=== PATIENT | female | born 1945 | race Caucasian/White ===

== ENCOUNTER 2017-08-03 12:23 | Observation (INO) | payer OTHER ==
[2017-08-03] MEDS ORDERED: ACETAMINOPHEN 325 MG TAB PO PRN (16:05)
[2017-08-03] MEDS ORDERED: ONDANSETRON DISINTEGRATING 4 MG TAB PO PRN (16:05)
[2017-08-03] MEDS ORDERED: ONDANSETRON 4 MG/2 ML VIAL IVP PRN (16:05)
[2017-08-03] MEDS ORDERED: WARFARIN SODIUM 4 MG TAB PO SCH (16:15)
--- NOTE | 2017-08-03 16:16 | PDCARPN ---
Cardiology Progress Note Chief Complaint: PAF Assessment/Plan: Assessment: Evangelina is a 72 y/o F with a history of CVA and atrial fibrillation on Coumadin. She is being treated with rhythm control and anticoagulation. She failed Sotalol and Tikosyn secondary to bradycardia. She has done well on Amiodarone but unfortunately she had two episodes of afib recently. On 08/01 she presented to [facility] in a.fib with RVR. She was started on PO dilt and d/c home. She was seen by Dr. Bedolla in the office today who was concerned that if she converted to NSR while on dilt she could become bradycardic with her history of SSS. Will d/c Dilt and plan for CV tomorrow morning. Her INR's have been therapeutic per her son who has kept a record (see below). She will continue Coumadin and Amiodarone. INR 06/28 2.5 07/06 2.6 07/13 2.3 07/20 2.4 07/27 2.4 Plan: Hold dilt and plan for CV tomorrow morning. 08/03/17 16:10 Subjective: Pt denies any CP, SOB, or palpitations. Objective: Vital Signs (8 Hrs) Temp Pulse Resp BP Pulse Ox 08/03/17 15:46 37.1 C 112 H 14 111/89 H 97 Intake/Output (24 Hrs) 08/02/17 08/03/17 08/04/17 05:59 05:59 05:59 Other: Weight 77.2 kg - Physical Exam Cardiovascular: no murmurs, no rubs, no gallops, irregularly irregular Respiratory: clear to auscultate bilat, no crackles, no wheezes Skin: no edema Neurologic: AAOx3 ICD10 Worksheet Patient Problems: Problems Problem Status Onset Atrial fibrillation Acute
[2017-08-03 16:40] LABS: INR 2.43 (0.83-1.16); PROTIME(PATIENT) 26.4 SEC (12.0-15.0)
[2017-08-03 16:41] LABS: APTT 35.5 SEC (23.0-38.0)
[2017-08-03 16:45] LABS: % IMMATURE GRANULYOCYTES 0.2 % (0.0-1.1); ABSOLUTE IMMATURE GRANULOCYTES 0.01 10^3/uL (0.00-0.10); ADD DIFF? NO; ADD MORPH? NO; ADD SCAN? NO; ATYPICAL LYMPHOCYTE FLAG 0 (0-99); FRAGMENT RBC FLAG 0 (0-99); HEMATOCRIT 35.4 % (38.0-47.0); HEMOGLOBIN 11.5 g/dL (12.6-16.3); LEFT SHIFT FLG 0 (0-99); LIPEMIA HEMOLYSIS FLAG 80 (0-99); MEAN CELL HEMOGLOBIN 26.6 pg (27.9-34.1); MEAN CELL HEMOGLOBIN CONCENTR. 32.5 g/dL (32.4-36.7); MEAN CELL VOLUME 81.9 fL (81.5-99.8); MEAN PLATELET VOLUME 9.9 fL (8.7-11.7); PLATELET CLUMPS FLAG 20 (0-99); PLATELET COUNT 263 10^3/uL (150-400); RED BLOOD CELL COUNT 4.32 10^6/uL (4.18-5.33)
[2017-08-03 17:06] LABS: ANION GAP 12 mEq/L (8-16); CALCIUM 8.7 mg/dL (8.5-10.4); CARBON DIOXIDE 25 mEq/l (22-31); CHLORIDE 105 mEq/L (97-110); CREATININE 0.8 mg/dL (0.6-1.0); GLOMERULAR FILTRATION RATE > 60; GLUCOSE 121 mg/dL (70-100); MAGNESIUM 2.1 mg/dL (1.6-2.3); POTASSIUM 4.1 mEq/L (3.5-5.2); SODIUM 142 mEq/L (134-144)
[2017-08-03] MEDS ORDERED: CLORAZEPATE 7.5 MG TAB PO PRN (17:45)
[2017-08-04] MEDS ORDERED: ATROPINE SULFATE 1 MG/10 ML SYR IVP ONE (06:00)
[2017-08-04] MEDS ORDERED: NS 1,000 ML IV ONE (06:00)
[2017-08-04 06:24] LABS: ANION GAP 9 mEq/L (8-16); CALCIUM 8.7 mg/dL (8.5-10.4); CARBON DIOXIDE 27 mEq/l (22-31); CHLORIDE 107 mEq/L (97-110); CREATININE 0.7 mg/dL (0.6-1.0); GLOMERULAR FILTRATION RATE > 60; GLUCOSE 93 mg/dL (70-100); POTASSIUM 4.3 mEq/L (3.5-5.2); SODIUM 143 mEq/L (134-144)
[2017-08-04 06:31] LABS: APTT 36.5 SEC (23.0-38.0); INR 2.58 (0.83-1.16); PROTIME(PATIENT) 27.6 SEC (12.0-15.0)
[2017-08-04 07:29] VITALS: TEMP 97.8
[2017-08-04] MEDS ORDERED: ATROPINE SULFATE 1 MG/10 ML SYR ONE (08:29)
--- NOTE | 2017-08-04 08:58 | PDANEPAE ---
ANE History of Present Illness 72 yo for isaiah/cv ANE Past Medical History - Cardiovascular History Hx Hypertension: Yes Hx Arrhythmias: Yes Hx Chest Pain: No Hx Palpitations: Yes - Pulmonary History Hx Oxygen in Use at Home: No Hx Sleep Apnea: Yes Sleep Apnea Screening Result - Last Documented: Positive - Endocrine History Hx Diabetes: No - Chronic Pain History Chronic Pain: Yes ANE Review of Systems Review of Systems: - Exercise capacity METS (RN): 3 METS ANE Patient History - Allergies Allergies/Adverse Reactions: No Known Allergies Allergy (Unverified 06/07/16 17:02) - Home Medications Home medications: home medication list seen and reviewed Home Medications: Atorvastatin Calcium [Lipitor 40 mg (*)] 40 mg PO DAILY 06/07/16 [Last Taken ] C/E/Zn/Cu/OM3/DHA/EPA/LUT/ZEAX [Preservision Areds 2 Softgel] 2 each PO DAILY [Last Taken 08/03/17] Ashley-3 Fatty Acids [Fish Oil 1000 mg (*)] 1,000 mg PO DAILY 06/07/16 [Last Taken 08/03/17] Tranxene 7.5mg 1 each PO DAILY PRN 06/07/16 [Last Taken 08/02/17] amLODIPine BESYLATE [Norvasc 5 mg (*)] 5 mg PO DAILY 06/07/16 [Last Taken ] Aspirin EC [Aspirin EC 81 mg (*)] 81 mg PO DAILY 08/03/17 [Last Taken 08/03/17] DILTIAZEM HCL [DILTIAZEM 24HR ER] 180 mg PO DAILY 08/03/17 [Last Taken 08/03/17] Herbals/Supplements -Info Only 1 ea PO DAILY 08/03/17 [Last Taken 08/03/17] Polyethylene Glycol 3350 [Miralax 17 gm (*)] 17 gm PO DAILY PRN 08/03/17 [Last Taken 08/03/17] Sertraline HCl [Zoloft 100mg (*)] 100 mg PO DAILY 08/03/17 [Last Taken 08/03/17] Warfarin Sodium [Coumadin 4MG (*)] 4 mg PO DAILY16 08/03/17 [Last Taken 08/02/17 ] - NPO status NPO Status: no food or drink >8 hours NPO Since - Liquids (Date): 08/04/17 NPO Since - Liquids (Time): 00:00 NPO Since - Solids (Date): 08/03/17 NPO Since - Solids (Time): 18:00 - Smoking Hx Smoking Status: Never smoked ANE Labs/Vital Signs - Labs Result Diagrams: 08/03/17 16:05 08/04/17 04:36 - Vital Signs Blood Pressure: 112/80 Heart Rate: 99 Respiratory Rate: 12 O2 Sat (%): 92 Height: 5 ft 6 in Weight: 77.2 kg ANE Physical Exam - Airway Neck exam: FROM Mallampati Score: Class 2 Mouth exam: normal dental/mouth exam - Pulmonary Pulmonary: no respiratory distress - Cardiovascular Cardiovascular: regular rate and rhythym - ASA Status ASA Status: II ANE Anesthesia Plan Anesthesia Plan: GA with mask
[2017-08-04] MEDS ORDERED: ASPIRIN EC 81 MG TAB PO SCH (09:00)
[2017-08-04] MEDS ORDERED: SERTRALINE HCL 100 MG TAB PO SCH (09:00)
[2017-08-04] MEDS ORDERED: ATORVASTATIN CALCIUM 40 MG TAB PO SCH (09:00)
[2017-08-04] MEDS ORDERED: amLODIPine BESYLATE 5 MG TAB PO SCH (09:00)
[2017-08-04] MEDS ORDERED: PROPOFOL 200 MG/20 ML VIAL ONE ×2 (09:02)
--- NOTE | 2017-08-04 09:49 | POSTANESTH ---
Post Anesthetic Evaluation Cardiovascular Status: Normal, Stable Respiratory Status: Normal, Stable Level of Consciousness/Mental Status: Can Participate in Eval Pain Control: Adequate, Prn Tx Ordered Nausea/Vomiting Control: Adequate, Prn Tx Ordered Complications Possibly Related to Anesthesia: None Noted
--- NOTE | 2017-08-04 09:49 | CPEKG ---
Heart Rate: 59 RR Interval: 1017 P-R Interval: 176 QRSD Interval: 90 QT Interval: 452 QTC Interval: 448 P [place]: 38 QRS [place]: -29 T Wave [place]: 13 EKG Severity - BORDERLINE ECG - EKG Impression: SINUS RHYTHM EKG Impression: BORDERLINE LEFT AXIS DEVIATION EKG Impression: BORDERLINE T WAVE ABNORMALITIES EKG Impression: COMPARED WITH 06/09/2017 NO SIG CHANGE Electronically Signed By: Neisha Gutierrez 04-Aug-2017 17:12:23
[2017-08-04 11:06] VITALS: BP 130/68; PULSE 58; RESP 16; O2SAT 95
--- NOTE | 2017-08-04 14:15 | GDS ---
[f rep st] DISCHARGE SUMMARY PRIMARY AXMINSTER RUG SETTER: Dr. Song Bedolla. DISCHARGE DIAGNOSIS: 1. Paroxysmal atrial fibrillation, currently on amiodarone, status post transesophageal echocardiogr am cardioversion on August 04, which was successful. 2. Possible sick sinus syndrome, currently maintaining sinus rhythm with heart rate of 50 to 60 beat s per minute. 3. Hypertension. 4. History of cerebrovascular accident. HOSPITAL COURSE: For detailed H and P, please see prior dictation. Briefly, the patient is a 72-yea r-old female with a history of hypertension, CVA, and paroxysmal atrial fibrillation. She is being t reated with rhythm control and anticoagulation. She failed sotalol and Tikosyn secondary to bradycar gallito. She has been on amiodarone and had done well until approximately a week ago. She had 1 event w here she converted to normal sinus rhythm on her own. Her 2nd event occurred 4 days ago and she was evaluated at [facility]. At that time, they started her on diltiazem for rate control and discharged her home. She followed up with Dr. Song Bedolla on August 03 and was still in atrial fibrillation. He was concerned that she would develop significant bradycardia if she converted to s inus rhythm on diltiazem. She was admitted to the hospital on August 03 and diltiazem was disconti nued. The following morning, she underwent a ROSE cardioversion by Dr. Sunny Jones, which was successf ul. Her heart rate has been stable at 50 to 60 beats per minute. The patient denies any chest disco mfort or shortness of breath. Her dizziness has improved. Her EKG post cardioversion reveals normal sinus rhythm with heart rate of 59 with diffuse T-wave flattening. She has been monitored on teleme try and has been remaining in sinus rhythm with a heart rate of 50 to 60 beats per minute. Her INR h as been therapeutic, it is currently 2.58. PHYSICAL EXAMINATION: GENERAL: Patient appears in no acute distress. VITAL SIGNS: Blood pressure 130/68, heart rate 58, oxygen saturation of 95% on room air, afebrile. LUNGS: Clear to auscultation . No wheezes, rhonchi, or crackles auscultated. CARDIAC: Regular rate and rhythm without any signi ficant murmurs, rubs, or gallops appreciated. EXTREMITIES: Palpable pulses without any evidence of edema. MEDICATIONS: Her medications are unchanged except for diltiazem has been discontinued. She will con tinue fish oil 1000 mg daily, Lipitor 40 mg daily, Norvasc 5 mg daily, 7.5 mg p.r.n., aspi rin 81 mg daily, herbal supplement daily, Zoloft 100 mg daily, Coumadin 4 mg daily, MiraLAX 17 g p.r. n., amiodarone 100 mg daily. PLAN: The patient is currently stable and ready for discharge home. She will remain on Coumadin and her INR is therapeutic. She will also continue amiodarone at 100 mg daily. Diltiazem has been disc ontinued. She will follow up with Dr. Song Bedolla as scheduled on 09/05 at 1:45 in [place]. /[id number]/MODL
--- NOTE | 2017-08-04 15:09 | ASDISCHSUM ---
Discharge Information Plan Status:Home with No Needs Medically Cleared to Leave:08/03/2017 Discharge Date:08/04/2017 01:14 PM CM D/C Disposition: ADT D/C Disposition:Home, Routine, Self-Care Projected Discharge Date:08/04/2017 12:00 AM Transportation at D/C: Discharge Delay Reason: Follow-Up Date:08/04/2017 12:00 AM Discharge Slot: Final Diagnosis: Placement Information Patient Contact Information Contact Name:KATTY Relationship: Address:[address] Work Phone: Emelia:RAMIN [facility] Phone: [facility]/Zip Code:[place] [address] Email: Financial Information Financial Class:Medicare Advantage Plans Primary Plan Desc:MARK [employer]UONG MEDICARE Primary Plan Number:[id number] Secondary Plan Desc:[facility] [employer] PROG Secondary Plan Number:[id number] Assessment Information Intervention Information
--- NOTE | 2017-08-04 15:12 | ECHO ---
[email or web address] [address] [address] Main: [phone] Fax: Transesophageal Echocardiography Name: VIRGINIA KWONG MR#: [id number] Study Date: 08/04/2017 Study Time: 09:05 AM Date of : 1945 Age: 72 year(s) Height: ( ) Weight: ( ) BSA: Gender: Female Examination: ROSE Indication: New onset A-fib, pre cardioversion Image Quality: Contrast: Requested by: Laila Wade Heart Rate: Rhythm: BP: / Procedure Staff Career Development Director: Landry Lancaster Reading Physician: Sunny Jones Requesting Provider: ROSE Exam Details Conclusions: Normal global systolic LV function. Normal size right ventricle. No thrombus is noted in the left atrium. Good color flow doppler in the left atrial appendage. No thrombus in left appendage. Measurements: Chambers Valvular Assessment AV/MV Valvular Assessment TV/PV Normal Normal Normal Name Value Range Name Value Range Name Value Range Additional Measurements: Findings: Left Ventricle: Normal global systolic LV function. Right Ventricle: Normal size right ventricle. Left Atrium: No thrombus is noted in the left atrium. Left Atrial Appendage: Good color flow doppler in the left atrial appendage. Normal PW-Doppler flow pattern. No thrombus in left appendage. Patient: VIRGINIA KWONG Study Date: 08/04/2017 Page 1 of 2 09:05 AM Right Atrium: The right atrium is normal in size. Mitral Valve: The mitral valve is normal in appearance and function. Aortic Valve: The aortic valve is normal in appearance and function. There is no significant aortic valve regurgitation. Tricuspid Valve: The tricuspid valve is normal in appearance and function. Pulmonic Valve: The pulmonic valve is normal in appearance and function. Exam Comments: Proceeded with successful elective DC cardioversion.. l1n (No Signature Object) Patient: VIRGINIA KWONG Study Date: 08/04/2017 Page 2 of 2 09:05 AM [id number]
--- NOTE | 2017-08-04 17:35 | GPN ---
[f rep st] PROCEDURE NOTE DATE OF PROCEDURE: 08/04/2017 Cardiology Procedure Note PROCEDURE PERFORMED: Transesophageal echocardiogram, cardioversion. INDICATIONS FOR PROCEDURE: Atrial fibrillation with rapid ventricular response. The patient is a pleasant 72-year-old female with known history of paroxysmal atrial fibrillation. S he was intolerant to AV param blocking medications, including diltiazem secondary to symptomatic jazzy ycardia. She is currently on low-dose amiodarone. She is on chronic anticoagulation with Coumadin. She has been compliant with Coumadin without interruption. Her INR today is therapeutic. She is sc heduled today for cardioversion in the setting of symptomatic AFib with RVR. DESCRIPTION OF PROCEDURE: After informed consents were obtained for anesthesia, ROSE, as well as card ioversion, the patient was brought to the cardiovascular unit. With the assistance of anesthesia, leona robles was sedated. Prior to sedation, she had an oral bite block in place. ROSE probe was passed without difficulty. ROSE probe was used to take images of all cardiac structures, the primary focus on her l eft atrium and left atrial appendage. There was no evidence of thrombus. Please see complete echo r eport for full details. ROSE probe was withdrawn without difficulty. She underwent a single synchronized biphasic shock of 15 0 joules restoring her to her normal sinus rhythm at approximately 58-62 beats per minute. She kirsten ated the procedure well. She awoke from anesthesia. She was without complaint. PLAN: 1. Patient be discharged home on amiodarone at her current dose. 2. Patient will continue Coumadin per her regular regimen. 3. Patient will schedule with Dr. Bedolla as an outpatient. /[id number]/MODL
== END 2017-08-04 13:14 | disposition home or self-care (01) ==
LOC: F2W 15:19
PROVIDERS: ADMIT Internal Medicine Cardiovascular Disease; ATTEND Internal Medicine Cardiovascular Disease
DX: I48.0 Paroxysmal atrial fibrillation (principal); R00.1 Bradycardia, unspecified; I10 Essential (primary) hypertension; E78.5 Hyperlipidemia, unspecified; E05.90 Thyrotoxicosis, unspecified without thyrotoxic crisis or storm; I69.320 Aphasia following cerebral infarction; J45.909 Unspecified asthma, uncomplicated; Z79.82 Long term (current) use of aspirin; Z79.01 Long term (current) use of anticoagulants; Z79.899 Other long term (current) drug therapy; Z86.718 Personal history of other venous thrombosis and embolism; Z87.891 Personal history of nicotine dependence; Z82.49 Family history of ischemic heart disease and other diseases of the circulatory system
CPT/HCPCS: 92960; 93005; 93312; G0378; J2704; J0461

== ENCOUNTER 2017-08-24 14:43 | Inpatient (IN) | payer OTHER ==
[2017-08-24] MEDS ORDERED: ACETAMINOPHEN 325 MG TAB PO PRN (15:49)
[2017-08-24] MEDS ORDERED: ONDANSETRON DISINTEGRATING 4 MG TAB PO PRN (15:49)
[2017-08-24] MEDS ORDERED: ONDANSETRON 4 MG/2 ML VIAL IVP PRN (15:49)
[2017-08-24] MEDS ORDERED: DILTIAZEM 125 MG in D5W 125 ML IV SCH (16:45)
--- NOTE | 2017-08-24 17:22 | GHP ---
[f rep st] HISTORY AND PHYSICAL DATE OF ADMISSION: 08/24/2017 CHIEF COMPLAINT: Atrial fibrillation with RVR. PRIMARY INVENTORY CONTROL ANALYST: Dr. 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 She underwent cardioversion 08/04/2017, here at [facility] and had been doing well up until a couple days ago. She then felt her heart pounding and palpitations. She felt very fatigued and not like herself. She had mild dizziness and lightheadedness. No chest pain or shortness of breath. No lower extremity edema. She is on low-dose amiodarone 100 mg daily because was not able to tolerate sotalol, beta-huong, or diltiazem due to bradycardia. So she was transferred here for further evaluation. At this current time, she denies any chest pain, shortness of breath, dizziness, or lightheadedness. REVIEW OF SYSTEMS: I completed a 10-point review of systems, negative except as noted in HPI. PAST MEDICAL HISTORY: Paroxysmal atrial fibrillation, colon polyps, CVA with residual difficulty word finding, diverticulosis, hyperlipidemia, hemorrhoids, hypertension, rheumatoid arthritis, history of a thyroid nodule, varicose veins , psoriasis, macular degeneration of left eye. She had an echocardiogram done at [place] showing a normal LV function, EF 55% to 60%, mild MR, LVH with diastolic dysfunction, mild TR. PAST SURGICAL HISTORY: Appendectomy, cholecystectomy, tonsillectomy/ adenoidectomy, tubal ligation, varicose vein surgery, thyroid nodule removal. FAMILY HISTORY: CHF, CVA, hypertension, [place] father, mom, and uncle. Lives in [place] with her son and . No alcohol, tobacco, or illicits. ALLERGIES: No known drug allergies. HOME MEDICATIONS: Norvasc 5 mg daily, Coumadin 4 mg daily, tranxene 7.5 mg daily, sertraline 100 mg daily, MiraLAX daily, [place]-3 herbal supplements, atorvastatin 40 mg daily, aspirin 81 mg daily, amiodarone 100 mg daily. PHYSICAL EXAMINATION: VITAL SIGNS: Temperature 37, blood pressure 103/73, heart rates 130s, respiration 14, 95% on room air. GENERAL: Lying in bed, no acute distress, pale. HEENT: PERRLA. EOMI. Oropharynx clear. CV: Irregularly irregular, tachycardia. No lower extremity edema. LUNGS: Clear bilaterally. ABDOMEN: Soft, nontender, nondistended. Positive bowel sounds. : No Rodríguez. MUSCULOSKELETAL: Arthritic changes of bilateral hands secondary to rheumatoid. SKIN: Psoriatic skin lesions over chest, back, and extremities. NEURO: 2-12 intact. PSYCH: Alert and oriented x3. LABS: Today at [place], sodium is 142, potassium 3.7, chloride 111, carbon dioxide 25, creatinine 0.7, glucose 113, calcium 8.5. WBC 5.7, hemoglobin 12, hematocrit 38, platelets 279. INR was 3.14. Chest x-ray today per their review was normal. UA 08/23 was negative. ASSESSMENT AND PLAN: 1. Atrial fibrillation with rapid ventricular response: The patient underwent cardioversion July 2017 and has been difficult to treat given intolerance to sotalol, beta-huong, and diltiazem. Cardiology will plan for pacemaker tomorrow and antiarrhythmic agents. We will start diltiazem drip here. Her INR is supratherapeutic. We will hold Coumadin tonight. 2. History of cerebrovascular accident: Continue statin and aspirin, has residual word-finding difficulties. No hemiparesis. She does not use a walker or cane at home. 3. Hypertension: Resume Norvasc. 4. Rheumatoid arthritis: Not on any medications. 5. Diet: Cardiac and n.p.o. after midnight. 6. Deep venous thrombosis prophylaxis: On Coumadin. DISPOSITION: Patient warrants inpatient admission given atrial fibrillation with RVR, warranting diltiazem drip and pacemaker placement. /[id number]/MODL MTDD
[2017-08-24] MEDS ORDERED: ZOLPIDEM TARTRATE 5 MG TAB PO PRN (18:27)
[2017-08-24] MEDS ORDERED: SODIUM CL NASAL 45 ML BTL EACHNARE PRN (18:27)
--- NOTE | 2017-08-24 19:46 | PDMN ---
Medical Necessity Medical necessity: Pt meets INPT criteria per MD and [facility] M-505 Atrial Fibrillation (afib with RVR warranting diltiazem drip and pending pacemaker placement; hx cardioversion and intolerance to antiarrhythmic agents).
[2017-08-25 04:46] LABS: INR 3.01 (0.83-1.16); PROTIME(PATIENT) 31.1 SEC (12.0-15.0)
[2017-08-25] MEDS ORDERED: SODIUM CL NASAL 45 ML BTL EACHNARE PRN (08:00)
[2017-08-25] MEDS ORDERED: CLORAZEPATE 7.5 MG TAB PO PRN (08:15)
[2017-08-25 08:40] LABS: INR 2.77 (0.83-1.16); PROTIME(PATIENT) 29.2 SEC (12.0-15.0)
[2017-08-25] MEDS ORDERED: ENOXAPARIN 40 MG/0.4 ML SYR SC SCH (09:00)
[2017-08-25] MEDS: PRESERVISION AREDS2 FORMULA EYE VIT 1 EACH PO SCH (09:04)
[2017-08-25] MEDS: SERTRALINE HCL 100 MG TAB PO SCH (09:04)
[2017-08-25] MEDS: OMEGA-3 FATTY ACIDS 1,000 MG CAP PO SCH (09:04)
[2017-08-25] MEDS: ATORVASTATIN CALCIUM 40 MG TAB PO SCH (09:04)
[2017-08-25] MEDS ORDERED: DILTIAZEM 125 MG in D5W 125 ML IV SCH (09:42)
--- NOTE | 2017-08-25 10:31 | PDCARPN ---
Cardiology Progress Note Chief Complaint: AF RVR Assessment/Plan: Assessment: 72F PMH CVA 2016, htn, previous DVT, CHAPITO/CPAP, found to have AF at time of CVA; transferred from [facility] for continuity of care as she follows with [facility]. Was admitted 08/22 and transferred 08/24 to [facility]. 30+ pages of records from [facility] reviewed. D/w Drs. Rothman and Graeme. #. AF RVR: pt follows with Dr. Bedolla in O/P setting plan for only rate control with Dilt at this time titrate Dilt to 10 mL/hr to achieve HR<110 #. CVA: life long Coumadin #. htn: hold home Amlodipine in setting of titrating Dilt BP normotensive 08/25/17 09:57 Subjective: Feels fatigued and some "queasiness in abdomen." No palps. Objective: Vital Signs (8 Hrs) Temp Pulse Resp BP Pulse Ox 08/25/17 08:30 98.3 F 128 H 18 113/79 95 08/25/17 04:00 97.6 F 113 H 18 91/68 L 93 Intake/Output (24 Hrs) 08/24/17 08/25/17 08/26/17 05:59 05:59 05:59 Intake Total 440 Balance 440 Intake: Oral (ml) 350 IV Infused (ml) 90 Diltiazem 125 mg In D5w 90 125 ml @ Per Protocol IV CONT MARY Rx#:[id number] Other: Weight 75.551 kg Number of Voids Toilet 3 Result Diagrams: 08/25/17 03:59 Telemetry: reviewed: AF RVR Echocardiogram: Echo (from [facility] report) EF 55-60, mild-mod LVH with DD, mild-mod biatrial dil, mild MR - Physical Exam Constitutional: no apparent distress Eyes: pale conjunctiva Ears, Nose, Mouth, Throat: moist mucous membranes Cardiovascular: irregularly irregular Respiratory: clear to auscultate bilat Gastrointestinal: normoactive bowel sounds, no tenderness Skin: no rashes, no edema Neurologic: AAOx3 Psychiatric: cooperative, interactive ICD10 Worksheet Patient Problems: Problems Problem Status Onset Atrial fibrillation Acute
--- NOTE | 2017-08-25 12:33 | ASMTCASEMG ---
Living Arrangements What is your living Answers: With Spouse arrangement? Who do you live with? Type Of Residence What kind of residence do Answers: House you live in? Discharge Plan Comments Coordination Status Comments Notes: Pt is a 72 y/o female admitted for RVR afib. Pt will most likely have a pacemaker placed today or tomorrow. OT has been ordered and awaiting recommendation. Pt will most likely d/c independent when medically stable. CM available for changes. Plan: Independent Date Signed: 08/25/2017 12:32 PM Electronically Signed By:ILENE Wilson
[2017-08-25] MEDS: POLYETHYLENE GLYCOL 3350 17 GM PKT PO PRN (13:50)
--- NOTE | 2017-08-25 14:55 | HOSPPROG ---
Hospitalist Progress Note Assessment/Plan: 72 yo F w rapid AF AF: failed cardioversion X 2 at [facility] on dilt gtt per cardiology, trial of po diltiazem anticoagulated CVA: residual weakness and aphasia statin and warfarin con: cpap proph: anticoagulated dispo: inpt Subjective: case d/w claudia tamez, cardiology PA. telemetry: rapid AF, rate trending down (interp by me) Objective: Vital Signs Temp Pulse Resp BP Pulse Ox 37.1 C 90 16 95/72 L 94 08/25/17 13:25 08/25/17 13:25 08/25/17 13:25 08/25/17 13:25 08/25/17 13:25 Laboratory Results 08/25/17 03:59 08/24/17 08/25/17 08/26/17 05:59 05:59 05:59 Intake Total 440 Balance 440 PT 29.2 SEC (12.0-15.0) H 08/25/17 08:25 INR 2.77 (0.83-1.16) H 08/25/17 08:25 - Physical Exam Constitutional: no apparent distress, appears nourished Eyes: PERRL, anicteric sclera Ears, Nose, Mouth, Throat: moist mucous membranes, hearing normal Cardiovascular: irregularly irregular Respiratory: no respiratory distress, no rales or rhonchi Gastrointestinal: normoactive bowel sounds, soft, non-tender abdomen Genitourinary: no bladder fullness, No gutierrez in urethra Skin: warm, normal color Musculoskeletal: full muscle strength Neurologic: other (R sided weakness and mild aphasia) ICD10 Worksheet Patient Problems: Problems Problem Status Onset Atrial fibrillation Acute
[2017-08-25] MEDS: DILTIAZEM 60 MG TAB PO SCH ×2 (15:54→22:11)
[2017-08-25] MEDS ORDERED: WARFARIN SODIUM 4 MG TAB PO SCH (16:00)
[2017-08-25] MEDS: ZOLPIDEM TARTRATE 5 MG TAB PO PRN (22:11)
[2017-08-26] MEDS: POLYETHYLENE GLYCOL 3350 17 GM PKT PO PRN (09:14)
[2017-08-26] MEDS: OMEGA-3 FATTY ACIDS 1,000 MG CAP PO SCH (09:15)
[2017-08-26] MEDS: PRESERVISION AREDS2 FORMULA EYE VIT 1 EACH PO SCH (09:15)
[2017-08-26] MEDS: ATORVASTATIN CALCIUM 40 MG TAB PO SCH (09:15)
[2017-08-26] MEDS: SERTRALINE HCL 100 MG TAB PO SCH (09:15)
[2017-08-26] MEDS: DILTIAZEM 60 MG TAB PO SCH ×3 (09:15→20:59)
[2017-08-26 12:08] LABS: INR 2.02 (0.83-1.16); PROTIME(PATIENT) 22.9 SEC (12.0-15.0)
[2017-08-26] MEDS ORDERED: ALTEPLASE 2 MG VIAL IVP PRN (13:06)
--- NOTE | 2017-08-26 13:28 | PDCARPN ---
Cardiology Progress Note Chief Complaint: AF RVR Assessment/Plan: Assessment: 72F PMH CVA 2016, htn, previous DVT, CHAPITO/CPAP, found to have AF at time of CVA; transferred from [facility] for continuity of care as she follows with [facility]. Was admitted 08/22 and transferred 08/24 to [facility]. #. AF RVR: pt follows with Dr. Bedolla in O/P setting plan for only rate control with Dilt adopted was on IV dilt and no on PO Dilt 120 TID/ will add Metoprolol likely pt will need pacer and more rhythm control will keep NPO and plan for Dr. Anand to see in AM #. CVA: life long Coumadin #. htn: hold home Amlodipine in setting of titrating Dilt BP normotensive Plan: -Add Metoprolol -NPO after midnight 08/26/17 13:24 Subjective: Has been ambulating. Pain from multiple IV sticks. Reviewed/Discussed With: hospitalist (Dr. Garcia) Objective: Vital Signs (8 Hrs) Temp Pulse Resp BP Pulse Ox 08/26/17 12:00 97.9 F 112 H 18 111/82 H 97 08/26/17 09:15 115 H 08/26/17 08:00 97.9 F 106 H 18 119/73 96 Intake/Output (24 Hrs) 08/25/17 08/26/17 08/27/17 05:59 05:59 05:59 Intake Total 440 750 Balance 440 750 Intake: Oral (ml) 350 750 IV Infused (ml) 90 Diltiazem 125 mg In D5w 90 125 ml @ Per Protocol IV CONT MARY Rx#:[id number] Other: Weight 75.551 kg Number of Voids Toilet 3 1 Number of Stools Toilet 1 Result Diagrams: 08/25/17 03:59 Telemetry: AF RVR - Physical Exam Constitutional: healthy appearing, no apparent distress Ears, Nose, Mouth, Throat: moist mucous membranes Cardiovascular: irregularly irregular Respiratory: clear to auscultate bilat Skin: no rashes, no abrasions Neurologic: AAOx3 Psychiatric: cooperative, interactive ICD10 Worksheet Patient Problems: Problems Problem Status Onset Atrial fibrillation Acute
[2017-08-26] MEDS: METOPROLOL TARTRATE 25 MG TAB PO SCH ×2 (14:12→20:57)
--- NOTE | 2017-08-26 16:22 | HOSPPROG ---
Hospitalist Progress Note Assessment/Plan: 72 yo F w rapid AF AF: failed cardioversion X 2 at [facility] on dilt gtt per cardiology, trial of po diltiazem anticoagulated check tsh CVA: residual weakness and aphasia statin and warfarin con: cpap proph: anticoagulated dispo: inpt Subjective: requesting multivitamin. case d/w claudia tamez, cardiology PA Objective: Vital Signs Temp Pulse Resp BP Pulse Ox 36.6 C 74 18 113/60 97 08/26/17 12:00 08/26/17 16:10 08/26/17 12:00 08/26/17 16:10 08/26/17 12:00 Laboratory Results 08/25/17 03:59 08/25/17 08/26/17 08/27/17 05:59 05:59 05:59 Intake Total 440 750 Balance 440 750 PT 22.9 SEC (12.0-15.0) H 08/26/17 11:48 INR 2.02 (0.83-1.16) H 08/26/17 11:48 - Physical Exam Constitutional: no apparent distress, appears nourished Eyes: PERRL, anicteric sclera Ears, Nose, Mouth, Throat: moist mucous membranes, hearing normal Cardiovascular: irregularly irregular, tachycardia Respiratory: no respiratory distress, no rales or rhonchi Gastrointestinal: normoactive bowel sounds, soft, non-tender abdomen Genitourinary: no bladder fullness, No gutierrez in urethra Skin: warm, normal color Musculoskeletal: full muscle strength, no muscle tenderness Neurologic: AAOx3 Psychiatric: interacting appropriately ICD10 Worksheet Patient Problems: Problems Problem Status Onset Atrial fibrillation Acute
[2017-08-26] MEDS: MULTIVITAMINS 1 EACH TAB PO SCH (20:57)
[2017-08-26] MEDS: ZOLPIDEM TARTRATE 5 MG TAB PO PRN (20:57)
[2017-08-27] MEDS: PRESERVISION AREDS2 FORMULA EYE VIT 1 EACH PO SCH (10:00)
[2017-08-27] MEDS: OMEGA-3 FATTY ACIDS 1,000 MG CAP PO SCH (10:00)
[2017-08-27] MEDS: SERTRALINE HCL 100 MG TAB PO SCH (10:00)
[2017-08-27] MEDS: ATORVASTATIN CALCIUM 40 MG TAB PO SCH (10:00)
[2017-08-27] MEDS: DILTIAZEM 60 MG TAB PO SCH ×2 (10:00→17:11)
[2017-08-27] MEDS: METOPROLOL TARTRATE 25 MG TAB PO SCH (10:00)
--- NOTE | 2017-08-27 10:43 | PDCARPN ---
Cardiology Progress Note Chief Complaint: Atrial fibrillation Assessment/Plan: Assessment: 1. Atrial fibrillation 2. prior CVA Plan: 1. continue on diltiazem and metoprolol at current dose. I would like these drugs to achieve steady state prior to increasing the dose. Blood pressure is in the low 100s and I doubt that she would tolerate higher doses of these medications. May need to add low-dose amiodarone back for better rate control is she is not controlled when I see her as an outpatient. 2. Resume warfarin, no plan to put in pacemaker this admission unless she has longer ventricular pauses. 3. hopefully should be able to be discharged home tomorrow 08/27/17 10:38 Subjective: feels better today. Offers no complaints. Reviewed/Discussed With: family, hospitalist Time Spent With Patient: 15 minutes Objective: Vital Signs (8 Hrs) Temp Pulse Resp BP Pulse Ox 08/27/17 07:08 36.6 C 90 13 102/52 L 94 08/27/17 04:00 36.6 C 85 18 105/74 95 Intake/Output (24 Hrs) 08/25/17 08/26/17 08/27/17 11:59 11:59 11:59 Intake Total 440 750 250 Balance 440 750 250 Intake: Oral (ml) 350 750 250 IV Infused (ml) 90 Diltiazem 125 mg In D5w 90 125 ml @ Per Protocol IV CONT MARY Rx#:[id number] Other: Weight 75.551 kg Intake Quantity Yes Sufficient Number of Voids Toilet 2 1 3 Number of Stools Toilet 1 1 Result Diagrams: 08/25/17 03:59 Telemetry: atrial fibrillation, ventricular rates between 90 to 120 beats per minute at rest ICD10 Worksheet Patient Problems: Problems Problem Status Onset Atrial fibrillation Acute
--- NOTE | 2017-08-27 15:10 | HOSPPROG ---
Hospitalist Progress Note Assessment/Plan: 72 yo F w rapid atrial fibrillation # acute atrial fibrillation with rapid ventricular response - history of failed cardioversion X 2 at [facility]- TSH 0.7 Telemetry (personally reviewed and interpreted) atrial fibrillation rates in 80s to 90's Oxygen saturations 94% on room air Transitioned to p.o. diltiazem overnight - continue 120 p.o. diltiazem - continue p.o. 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 Anand- we will continue to monitor overnight on telemetry Subjective: Good appetite no chest pain Objective: Vital Signs Temp Pulse Resp BP Pulse Ox 36.8 C 88 10 L 106/68 96 08/27/17 11:39 08/27/17 11:39 08/27/17 11:39 08/27/17 11:39 08/27/17 11:39 Laboratory Results 08/25/17 03:59 08/26/17 08/27/17 08/28/17 05:59 05:59 05:59 Intake Total 750 250 Balance 750 250 PT 22.9 SEC (12.0-15.0) H 08/26/17 11:48 INR 2.02 (0.83-1.16) H 08/26/17 11:48 - Physical Exam Constitutional: no apparent distress Eyes: anicteric sclera Ears, Nose, Mouth, Throat: moist mucous membranes Cardiovascular: systolic murmur, irregularly irregular, No tachycardia Respiratory: no respiratory distress Gastrointestinal: normoactive bowel sounds Genitourinary: no bladder fullness Skin: warm Musculoskeletal: No asymmetric calves Neurologic: No AAOx3 Psychiatric: poor memory Lymph, Heme, Immunologic: no cervical LAD ICD10 Worksheet Patient Problems: Problems Problem Status Onset Atrial fibrillation Acute
[2017-08-27] MEDS ORDERED: CANN-EASE 2 GM TUBE TP PRN (15:37)
[2017-08-27] MEDS: POLYETHYLENE GLYCOL 3350 17 GM PKT PO PRN (15:58)
[2017-08-27] MEDS ORDERED: WARFARIN SODIUM 4 MG TAB PO SCH (16:00)
[2017-08-27] MEDS ORDERED: METOPROLOL TARTRATE 25 MG TAB PO ONE ×2 (18:00→18:45)
[2017-08-27] MEDS ORDERED: NS 500 ML IV ONE (19:00)
[2017-08-27] MEDS: ZOLPIDEM TARTRATE 5 MG TAB PO PRN (20:48)
[2017-08-27] MEDS: MULTIVITAMINS 1 EACH TAB PO SCH (20:48)
[2017-08-27] MEDS ORDERED: DILTIAZEM 60 MG TAB PO ONE (22:00)
[2017-08-28 04:49] LABS: INR 1.42 (0.83-1.16); PROTIME(PATIENT) 17.5 SEC (12.0-15.0)
[2017-08-28] MEDS: ATORVASTATIN CALCIUM 40 MG TAB PO SCH (08:59)
[2017-08-28] MEDS: PRESERVISION AREDS2 FORMULA EYE VIT 1 EACH PO SCH (08:59)
[2017-08-28] MEDS: SERTRALINE HCL 100 MG TAB PO SCH (08:59)
[2017-08-28] MEDS: OMEGA-3 FATTY ACIDS 1,000 MG CAP PO SCH (08:59)
--- NOTE | 2017-08-28 09:26 | PDCARPN ---
Cardiology Progress Note Assessment/Plan: Assessment: 1. Atrial fibrillation 2. prior CVA Plan: 1. Events of last night noted, patient required fluid bolus for control of blood pressure. We will switch her Cardizem to 180 mg sustained release formulation daily and metoprolol 12.5 mg twice daily. She can be discharged on this dose. 2. Continue warfarin. 3. Follow up with Dr. Bedolla after 48 hr Holter monitor as outpatient. 4. If above medications do not control her heart rate, consideration to be given to pacemaker implantation and AV node ablation. 08/28/17 09:24 Subjective: She feels well. She denies any complaints Reviewed/Discussed With: family, other (Nursing staff) Time Spent With Patient: 30 min Objective: Vital Signs (8 Hrs) Temp Pulse Resp BP Pulse Ox 08/28/17 08:00 36.5 C 94 17 115/74 97 08/28/17 04:00 36.4 C 99 14 100/76 98 Intake/Output (24 Hrs) 08/26/17 08/27/17 08/28/17 11:59 11:59 11:59 Intake Total 864 601 3925 Balance 805 697 3433 Intake: Oral (ml) 581 818 2195 IV Infused (ml) 500 Ns 500 ml @ As Directed 500 IV ONCE ONE Rx#: [id number] Other: Intake Quantity Yes Yes Sufficient Number of Voids Toilet 1 3 4 Number of Stools Toilet 1 1 Result Diagrams: 08/28/17 04:20 Telemetry: Atrial fibrillation with ventricular rates between 80-120 beats per minute ICD10 Worksheet Patient Problems: Problems Problem Status Onset Atrial fibrillation Acute
[2017-08-28] MEDS ORDERED: DILTIAZEM CD 180 MG CAP PO SCH (10:00)
[2017-08-28] MEDS ORDERED: METOPROLOL TARTRATE 25 MG TAB PO SCH (10:15)
[2017-08-28 11:19] VITALS: BP 105/86; PULSE 94; RESP 16; TEMP 98.2; O2SAT 96
--- NOTE | 2017-08-28 18:02 | GDS ---
[f rep st] DISCHARGE SUMMARY CHIEF COMPLAINT: AFib. DISCHARGE DIAGNOSES: Include: 1. Atrial fibrillation with rapid ventricular response. 2. History of a cerebrovascular accident with residual weakness and aphasia. 3. Obstructive sleep apnea. HISTORY OF PRESENT ILLNESS: A 72-year-old female, presenting for evaluation of AFib with RVR. For d etails of patient's initial presentation, please see the History and Physical dated 08/24/2017. HOSPITAL COURSE: 1. Atrial fibrillation. Patient was admitted to the PCU and seen by Cardiology. Decision was made to titrate medical management for better rate control in this patient. She was taken off her amiodar one and initiated on a diltiazem drip, was effectively transitioned off the drip to p.o. diltiazem, a s well as p.o. metoprolol. On the day of disposition, patient's rates are optimized in the 90s to lo w 100. She is being discharged with outpatient followup with Dr. Bedolla and instructed to call the [facility] on Tuesday for arranging a Holter monitor. Patient will be continued on lifelong anticoagulatio n for her history of a CVA. 2. History of hypertension. Patient is having her amlodipine discontinued at disposition, as her bl ood pressures have been systolic in the 90s to low 100s on her new regimen of diltiazem and metoprolo l. DISCHARGE MEDICATIONS: Please reference med rec printed on 08/28/2017. FOLLOWUP APPOINTMENTS: Dr. Bedolla in the next 2-3 weeks for post disposition followup and to call [facility] Holter monitoring the day after discharge. Pending studies at the time of this dictation are none. TIME SPENT: I spent greater than 30 minutes in the planning and coordination of this discharge. /[id number]/MODL
--- NOTE | 2017-08-29 11:50 | ASDISCHSUM ---
Discharge Information Plan Status:Home with No Needs Medically Cleared to Leave: Discharge Date:08/28/2017 01:44 PM CM D/C Disposition:Home, Routine, Self-Care ADT D/C Disposition:Home, Routine, Self-Care Projected Discharge Date:08/28/2017 01:44 PM Transportation at D/C:Family Discharge Delay Reason: Follow-Up Date:08/28/2017 01:44 PM Discharge Slot: Final Diagnosis: Placement Information Patient Contact Information Contact Name:KATTY Relationship: Address:[address] Work Phone: City:[place] Phone: State/Zip Code:[place] [address] Email: Financial Information Financial Class:Medicare Advantage Plans Primary Plan Desc:[employer]IC[employer] Primary Plan Number:[id number] Secondary Plan Desc:[facility] Secondary Plan Number:99 Assessment Information [facility] Initial CM Assessment Living Arrangements What is your living Answers: With Spouse arrangement? Who do you live with? Type Of Residence What kind of residence do Answers: House you live in? Discharge Plan Comments Coordination Status Comments Notes: Pt is a 72 y/o female admitted for RVR afib. Pt will most likely have a pacemaker placed today or tomorrow. OT has been ordered and awaiting recommendation. Pt will most likely d/c independent when medically stable. CM available for changes. Plan: Independent Date Signed: 08/25/2017 12:32 PM Electronically Signed By:ILENE Wilson Case Management Discharge Plan Note Case Management Discharge Discharge Order Complete? Answers: Yes Patient to Obtain Answers: Independently Medications Transportation Arranged Answers: Family/Friends Discharge Comments Notes: Patient discharged to home in the care of her son Garfield. He will transport her. Patient has been instructed to make an appointment with cardiology this week to get a Holter monitor. No discharge needs identified. Date Signed: 08/28/2017 10:28 AM Electronically Signed By:Ness Laws RN Intervention Information
== END 2017-08-28 13:44 | disposition home or self-care (01) | DRG 310 ==
LOC: OBSVTOIN 15:27 → F2W 15:27
PROVIDERS: ADMIT Internal Medicine; ATTEND Internal Medicine
PROC: 02HV33Z Insertion of Infusion Device into Superior Vena Cava, Percutaneous Approach (ICD-10-PCS; principal; 2017-08-26)
DX: I48.0 Paroxysmal atrial fibrillation (principal); I69.920 Aphasia following unspecified cerebrovascular disease; E78.5 Hyperlipidemia, unspecified; M06.9 Rheumatoid arthritis, unspecified; G47.33 Obstructive sleep apnea (adult) (pediatric); I10 Essential (primary) hypertension; H35.30 Unspecified macular degeneration; Z79.01 Long term (current) use of anticoagulants; Z86.010 Personal history of colon polyps
CPT/HCPCS: 97161-GP; 97166-GO; C1751; G8978-GP-CI; G8979-GP-CI; G8980-GP-CI

== ENCOUNTER 2017-09-09 15:33 | Inpatient (IN) | payer OTHER ==
--- NOTE | 2017-09-09 16:13 | CPEKG ---
Heart Rate: 154 RR Interval: 390 QRSD Interval: 78 QT Interval: 316 QTC Interval: 506 QRS Keno: -29 T Wave Keno: 4 EKG Severity - ABNORMAL ECG - EKG Impression: ATRIAL FIBRILLATION WITH RAPID V-RATE EKG Impression: BORDERLINE LEFT AXIS DEVIATION EKG Impression: REPOLARIZATION ABNORMALITY, PROB RATE RELATED Electronically Signed By: Edgardo Suarez 09-Sep-2017 17:08:51
[2017-09-09] MEDS ORDERED: DILTIAZEM 25 MG/5 ML VIAL IVP ONE (16:47)
[2017-09-09] MEDS ORDERED: DILTIAZEM 125 MG in D5W 125 ML IV ONE (16:47)
[2017-09-09 16:52] LABS: PLATELET COUNT 306 10^3/uL (150-400)
--- NOTE | 2017-09-09 16:52 | EDPHY ---
H & P Time Seen by Provider: 09/09/17 16:27 HPI/ROS: CHIEF COMPLAINT: Rapid atrial fibrillation HISTORY OF PRESENT ILLNESS: 72-year-old woman has a history of atrial fibrillation and was admitted earlier this month. She was taken off amiodarone and discharge on diltiazem and metoprolol, discharge summary dated 08/28/2017 personally reviewed. She converted earlier this week in her medications of Cardizem and metoprolol or held for 3 days and then today she had 200 mg oral amiodarone per Dr. Bedolla and then at 2:30 p.m. today started feeling more fatigued and was noted to be in rapid atrial fibrillation. Symptoms identical to previous, not associated with chest pain shortness of breath or lightheadedness. REVIEW OF SYSTEMS: Eye: no change in vision ENT: no sore throat Cardiac: no chest pain or syncope Pulmonary: no cough or SOB Abdomen: no vomiting, diarrhea, abdominal pain Musculoskeletal: no back pain Skin: Psoriasis Neuro: no headache Constitutional: no fever : no urinary symptoms A comprehensive 10 point review of systems is otherwise negative aside from elements mentioned in the history of present illness. PAST MEDICAL HISTORY: Includes atrial fibrillation, macular degeneration, stroke with slight aphasic, thyroid, appendectomy, cholecystectomy, psoriasis. Social history: Here with her son. General Appearance: Alert and conversant, cooperative. Eyes: No scleral icterus. ENT, Mouth: Normal mucous membranes. Respiratory: Normal respiratory effort, breath sounds equal, lungs are clear to auscultation. Cardiovascular: irregular rate and rhythm, tachycardic Gastrointestinal: Abdomen is soft and non tender. Neurological: Alert, face symmetric, normal motor and sensory in extremities. Skin: psoriasis on legs and back Musculoskeletal: No peripheral edema. Psychiatric: Not agitated. Emergency Department course/MDM: 1651: Discussed with Graeme, recommends IV diltiazem rate control and hospitalist admission, likely av param ablation and pacemaker placement, Cardiology will consult in-house. Diltiazem 20 mg IV and drip ordered, protime to check anticoagulation. 1726: Diltiazem drip started, heart rate is 123, cardiology request for admission discussed with the patient and her son. Smoking Status: Never smoked Constitutional: Initial Vital Signs Temperature (C) 37.3 C 09/09/17 15:50 Heart Rate 140 H 09/09/17 15:50 Respiratory Rate 16 09/09/17 15:50 Blood Pressure 141/97 H 09/09/17 15:50 O2 Sat (%) 97 09/09/17 15:50 O2 Delivery Mode Nasal Cannula O2 (L/minute) 2 Allergies/Adverse Reactions: No Known Allergies Allergy (Unverified 06/07/16 17:02) Home Medications: Medication Instructions Recorded Atorvastatin Calcium [Lipitor 40 40 mg PO DAILY 06/07/16 mg (*)] C/E/Zn/Cu/OM3/DHA/EPA/LUT/ZEAX 2 each PO DAILY 06/07/16 [Preservision Areds 2 Softgel] [place]-3 Fatty Acids [Fish Oil 1000 1,000 mg PO DAILY 06/07/16 mg (*)] Aspirin EC [Aspirin EC 81 mg (*)] 81 mg PO DAILY 08/03/17 Herbals/Supplements -Info Only 1 ea PO DAILY 08/03/17 Polyethylene Glycol 3350 [Miralax 17 gm PO DAILY PRN 08/03/17 17 gm (*)] Sertraline HCl [Zoloft 100mg (*)] 100 mg PO DAILY 08/03/17 Warfarin Sodium [Coumadin 4MG (*)] 4 mg PO DAILY16 08/03/17 Sodium Chloride [Saline Nose [place]] 1 spray EACHNARE BID PRN 08/24/17 Zolpidem Tartrate [Ambien Cr] 6.25 mg PO HS PRN 08/24/17 Diltiazem Cd [Cardizem ER Q24hr] 180 mg PO DAILY #30 cap 08/28/17 Metoprolol Tartrate [Lopressor 25 12.5 mg PO BID #60 tab 08/28/17 mg (*)] Amiodarone HCl [Pacerone (*)] 200 mg PO AD 09/09/17 Clorazepate Dipotassium [Tranxene 7.5 mg PO DAILY PRN 09/09/17 T-Tab (*)] Medical Decision Making - Diagnostics EKG Interpretation: 12-lead EKG interpreted by me; official reading is in trace master. My interpretation is atrial fibrillation rate 154 with left axis. Differential Diagnosis: Differential diagnosis considered for narrow complex tachycardia including but not limited to various causes of sinus tachycardia, SVT, atrial flutter and atrial fibrillation. Consult/Admit Bed Type: [place] [address] Critical Care Time: Critical care time spent by me, Dr. Suarez, exclusively with the care of this patient was 35 minutes, exclusive of PA or [employer] time and exclusive of separate procedures. The organ system at risk was cardiovascular and I ordered multiple diagnostics, IV diltiazem drip, discussion with Cardiology and hospitalist to stabilize the patient and prevent worsening of the patient's condition. - Data Points Laboratory Results: Laboratory Results 09/09/17 16:22 09/09/17 16:22 09/09/17 09/09/17 09/09/17 16:22 16:22 16:22 WBC 6.58 10^3/uL 10^3/uL (3.80-9.50) RBC 4.48 10^6/uL 10^6/uL (4.18-5.33) Hgb 11.5 g/dL L g/dL (12.6-16.3) Hct 36.4 % L % (38.0-47.0) MCV 81.3 fL L fL (81.5-99.8) MCH 25.7 pg L pg (27.9-34.1) MCHC 31.6 g/dL L g/dL (32.4-36.7) RDW 16.4 % H % (11.5-15.2) Plt Count 306 10^3/uL 10^3/uL (150-400) MPV 9.9 fL fL (8.7-11.7) Neut % (Auto) 72.0 % % (39.3-74.2) Lymph % (Auto) 17.6 % % (15.0-45.0) [place] % (Auto) 8.1 % % (4.5-13.0) Eos % (Auto) 1.5 % % (0.6-7.6) Baso % (Auto) 0.5 % % (0.3-1.7) Nucleat RBC Rel Count 0.0 % % (0.0-0.2) Absolute Neuts (auto) 4.74 10^3/uL 10^3/uL (1.70-6.50) Absolute Lymphs (auto) 1.16 10^3/uL 10^3/uL (1.00-3.00) Absolute Monos (auto) 0.53 10^3/uL 10^3/uL (0.30-0.80) Absolute Eos (auto) 0.10 10^3/uL 10^3/uL (0.03-0.40) Absolute Basos (auto) 0.03 10^3/uL 10^3/uL (0.02-0.10) Absolute Nucleated RBC 0.00 10^3/uL 10^3/uL (0-0.01) Immature Gran % 0.3 % % (0.0-1.1) Immature Gran # 0.02 10^3/uL 10^3/uL (0.00-0.10) PT 21.2 SEC H SEC (12.0-15.0) INR 1.82 H (0.83-1.16) APTT 32.9 SEC SEC (23.0-38.0) Sodium 141 mEq/L mEq/L (135-145) Potassium 4.6 mEq/L mEq/L (3.5-5.2) Chloride 103 mEq/L mEq/L (97-110) Carbon Dioxide 25 mEq/l mEq/l (22-31) Anion Gap 13 mEq/L mEq/L (8-16) BUN 14 mg/dL mg/dL (7-23) Creatinine 0.6 mg/dL mg/dL (0.6-1.0) Estimated GFR > 60 Glucose 101 mg/dL H mg/dL (70-100) Calcium 9.0 mg/dL mg/dL (8.5-10.4) Troponin I < 0.012 ng/mL ng/mL (0.000-0.034) Medications Given: Discontinued Medications Diltiazem HCl (Cardizem 25 Mg/5 Ml Vial) 20 mg IVP EDNOW ONE Stop: 09/09/17 16:48 Last Admin: 09/09/17 17:05 Dose: 20 mg Diltiazem HCl 125 mg/ Dextrose 125 mls @ 0 mls/hr IV EDNOW ONE; As Directed PRN Reason: Protocol Stop: 09/09/17 16:48 Last Admin: 09/09/17 17:15 Dose: 125 mls Departure - Departure Disposition: [facility] Acute Clinical Impression: Atrial fibrillation Qualifiers: Atrial fibrillation type: unspecified Qualified Code(s): I48.91 - Unspecified atrial fibrillation Condition: Fair
[2017-09-09 17:23] LABS: INR 1.82 (0.83-1.16); PROTIME(PATIENT) 21.2 SEC (12.0-15.0)
[2017-09-09] MEDS ORDERED: CLORAZEPATE 7.5 MG TAB PO PRN (19:03)
[2017-09-09] MEDS ORDERED: SODIUM CL NASAL 45 ML BTL EACHNARE PRN (19:03)
[2017-09-09] MEDS ORDERED: Zolpidem Tartrate [Ambien Cr] 6.25 MG PO PRN (19:03)
[2017-09-09] MEDS ORDERED: ONDANSETRON 4 MG/2 ML VIAL IVP PRN (19:25)
[2017-09-09] MEDS ORDERED: ONDANSETRON DISINTEGRATING 4 MG TAB PO PRN (19:25)
[2017-09-09] MEDS ORDERED: HEPARIN 10,000 UNIT/10 ML MDV (1,000 UNIT/ML) IVP ONE (19:26)
[2017-09-09] MEDS ORDERED: HEPARIN 10,000 UNIT/10 ML MDV (1,000 UNIT/ML) IVP PRN (19:26)
--- NOTE | 2017-09-09 19:57 | GHP ---
[f rep st] HISTORY AND PHYSICAL DATE OF ADMISSION: 09/09/2017 CHIEF COMPLAINT: AFib. HISTORY OF PRESENT ILLNESS: This is a pleasant, 72-year-old female with a history of atrial fibrilla tion with recent admission and workup who was discharged on metoprolol and diltiazem and had been doi ng well overall. A few days ago, the patient converted to sinus rhythm and then was found to have br adycardia and subsequently both diltiazem and metoprolol were stopped. Unfortunately, the patient we nt into rapid AFib today and presented to the emergency department for further management. In the em ergency department, Dr. Song Bedolla was contacted, and the patient was started on a Cardizem drip. T he plan is for likely AV param ablation and pacemaker. Her heart rate is improved and is currently i n the 120s. She denies any chest pain, shortness of breath, palpitations, leg swelling, fever, nause a, vomiting, diarrhea, focal weakness or other. She does have a history of CVA with some residual we akness and aphasia, and this is at baseline. She is on chronic anticoagulation with warfarin; deeeve r, her INR is only 1.82. REVIEW OF SYSTEMS: A 10-point review of systems was obtained and is positive per HPI; otherwise nega tive. PAST MEDICAL HISTORY: Atrial fibrillation, colon polyps, CVA with residual difficulty word finding, diverticulosis, hyperlipidemia, obstructive sleep apnea, hemorrhoids, hypertension, rheumatoid arthri tis (not on medications), history of thyroid nodule, varicose veins, psoriasis, macular degeneration of the left eye. PAST SURGICAL HISTORY: Appendectomy, cholecystectomy, tonsillectomy and adenoidectomy, tubal ligatio n, varicose vein surgery, thyroid nodule removal. FAMILY HISTORY: Positive for CHF, CVA, hypertension; [place] both paternal and maternal sides. She lives with her son and . SOCIAL HISTORY: No history of alcohol, tobacco or illicits. ALLERGIES: No known drug allergies. MEDICATIONS: Home medications: Please see medication reconciliation list. PHYSICAL EXAMINATION: VITAL SIGNS: Blood pressure 124/49, heart rate 129, respiratory rate 17, satu rating 99% on 2 L, temperature 37.0. GENERAL: In no acute distress. Alert and oriented x3. HEENT: Pupils equal, round, react to light and accommodation. The extraocular movements are intact. The oropharynx is clear. NECK: Supple. No JVD. CARDIOVASCULAR: Irregular, irregular. Tachycardia. No lower extremity edema. LUNGS: Clear to auscultation bilaterally. ABDOMEN: Soft, nontender, nondistended. Positive bowel sounds. GENITOURINARY: No Rodríguez. MUSCULOSKELETAL: Bilateral rheumatoid arthritic changes to the hands. SKIN: Warm. Psoriatic skin lesions on extremities. NEUROLOGIC: Alert and oriented. Cranial nerves 2 to 12 are intact. PSYCHIATRIC: Mood is appropriate. LABORATORY: White blood cell count 6.58, hemoglobin 11.5, platelets 306. INR 1.82. Sodium 141, pot assium 4.6, chloride 103, bicarbonate 25, BUN 14, creatinine 0.6. Troponin unremarkable. STUDIES: EKG consistent with atrial fibrillation, rate in the 150s. IMPRESSION: 1. Atrial fibrillation with rapid ventricular response. 2. History of cerebrovascular accident with residual weakness and aphasia. 3. Chronic anticoagulation. 4. Obstructive sleep apnea. 5. Hyperlipidemia. 6. History of rheumatoid arthritis. PLAN: 1. The patient will be admitted under observation. Cardiology to see. I will keep the patient n.p. o. at midnight. Continue with Cardizem drip. I will hold the patient's additional cardiovascular ho ks meds until she is seen by Cardiology and a plan is finalized. In regard to anticoagulation, as he r INR is not therapeutic and there is possibly a procedure that will be performed, I will start her o n heparin. 2. Continue with CPAP. 3. Continue with appropriate home medications. /[id number]/MODL
[2017-09-09 20:06] LABS: PLATELET COUNT 295 10^3/uL (150-400)
[2017-09-09 20:15] LABS: INR 1.79 (0.83-1.16); PROTIME(PATIENT) 20.9 SEC (12.0-15.0)
[2017-09-09] MEDS: HEPARIN/DEXTROSE 500 ML IV SCH (21:49)
[2017-09-09] MEDS: ZOLPIDEM TARTRATE 5 MG TAB PO PRN (21:58)
[2017-09-10 04:45] LABS: PLATELET COUNT 280 10^3/uL (150-400)
[2017-09-10] MEDS: DILTIAZEM 125 MG in D5W 125 ML IV SCH (04:48)
[2017-09-10] MEDS: NS 1,000 ML IV SCH ×2 (06:44→17:38)
[2017-09-10] MEDS ORDERED: Herbals/Supplements -Info Only PO SCH (09:00)
[2017-09-10] MEDS: ATORVASTATIN CALCIUM 40 MG TAB PO SCH (09:01)
[2017-09-10] MEDS: SERTRALINE HCL 100 MG TAB PO SCH (09:01)
[2017-09-10] MEDS: PRESERVISION AREDS2 FORMULA EYE VIT 1 EACH PO SCH (09:01)
[2017-09-10] MEDS: OMEGA-3 FATTY ACIDS 1,000 MG CAP PO SCH (09:01)
--- NOTE | 2017-09-10 09:26 | HOSPPROG ---
Hospitalist Progress Note Assessment/Plan: 72-year-old female with known atrial fibrillation who was noted prior to admission to developed bradycardia while on diltiazem and metoprolol. Both were stopped and she developed atrial fibrillation with RVR. She is currently on a diltiazem drip with acceptable rate control. 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 Diltiazem drip will be increased to 15 mg to improve her rate control as her rate varies anywhere from 110-150. Patient is new to me today -tachy-justice syndrome: Plans for a pacemaker on 09/12 -chronic anticoagulation previously on Coumadin. Coumadin has been stopped and patient is on heparin anticoagulation which will be stopped preprocedure of the pacemaker. Last INR was 1.79 -history of a CVA on statin and aspirin. The aspirin will be held preprocedure -atrial fibrillation currently on a diltiazem drip. Plan: Pacemaker placement on September 12. Time 40 min: Patient was discussed with nursing and with Cardiology. Subjective: No complaints of chest pain or shortness of breath. Objective: Vital Signs Temp Pulse Resp BP Pulse Ox 36.6 C 135 H 16 100/56 L 96 09/10/17 08:03 09/10/17 08:03 09/10/17 08:03 09/10/17 08:03 09/10/17 08:03 Laboratory Results 09/10/17 03:12 09/10/17 03:12 09/09/17 09/10/17 09/11/17 05:59 05:59 05:59 Intake Total 923 Output Total 400 800 Balance 523 -800 PT 20.9 SEC (12.0-15.0) H 09/09/17 19:50 INR 1.79 (0.83-1.16) H 09/09/17 19:50 - Time Spent With Patient Time Spent with Patient: greater than 35 minutes Time Spent with Patient: Greater than 35 minutes spent on this patients care, greater than 50% of time spent counseling, educating, and coordinating care regarding the above mentioned plan. - Pending Discharge Pending Discharge Within 24 Hours: No Pending Discharge Within 48 Hours: No - Physical Exam Constitutional: no apparent distress Eyes: PERRL, anicteric sclera Ears, Nose, Mouth, Throat: moist mucous membranes, hearing normal Cardiovascular: irregularly irregular, tachycardia Respiratory: no respiratory distress, no rales or rhonchi Gastrointestinal: normoactive bowel sounds, soft, non-tender abdomen Genitourinary: no bladder fullness Skin: warm Musculoskeletal: generalized weakness Neurologic: AAOx3, CN II-XII Intact Psychiatric: interacting appropriately ICD10 Worksheet Patient Problems: Problems Problem Status Onset Atrial fibrillation Acute
--- NOTE | 2017-09-10 10:03 | PDMN ---
Medical Necessity Medical necessity: C/M review: Patient meets INPT criteria [place] [facility] Supraventricular arrhythmias, M-505 Atrial fibrillation: A or 1 day LOS; Acute and persistent tachy-justice syndrome, atrial fiobrillation, heart rate 150-130, requiring planned 09/12/2017 permanent pacemaker placement; ongoing IV Heparin infusion, IV Diltiazem infusion, cardiac monitoring, pulse oximetry, comorbid history atrial fibrillation with development of bradycardia on diltiazem and metoprolol, both meds discontinued, recent hospitalization for atrial fibrillation with rapid ventricular response, chronic anticoagulation previously on Coumadin, failed outpt therapy. MD anticipates > 2 MN LOS for ongoing med nec for eval and [place] of above. Patient is Medicare Advantage which follows guidelines CMS puts forth.
[2017-09-10] MEDS ORDERED: DIGOXIN 125 MCG TAB PO ONE (10:57)
[2017-09-10] MEDS: POLYETHYLENE GLYCOL 3350 17 GM PKT PO PRN (10:58)
--- NOTE | 2017-09-10 11:03 | PDCARPN ---
Cardiology Progress Note Chief Complaint: AF RVR Assessment/Plan: Assessment: 72F PMH CVA 2016, htn, previous DVT, CHAPITO/CPAP, found to have AF at time of CVA. Was admitted through ED yesterday for AF RVR. #. AF RVR: pt follows with Dr. Bedolla in O/P setting was noted to have some hypotension and so had held Dilt and Metoprolol so those were held admitted through ED yesterday for AF RVR Dilt gtt on hold due to hypotension spoke with Dr. Anand who would like to schedule a PPM insertion for tomorrow and then retrial on Amiodarone prior to D/C [employer] rep called will need INR ~ 1.8 for Tuesday dose with Coumadin today INR for Tuesday #. CVA: life long Coumadin #. htn: hold home Amlodipine in setting of titrating Dilt BP normotensive #. microcytic anemia: can be worked up as outpatient Plan: -One time dose of Dig -Warfarin today -PPM for Tuesday (orders entered and [employer] contacted) 09/10/17 10:50 Subjective: Feels better. Was noting palpitations upon arrival. No dizziness, cp, dyspnea. Reviewed/Discussed With: hospitalist (Dr. Rolle) Result Diagrams: 09/10/17 03:12 09/10/17 03:12 Telemetry: reviwed- AF RVR - Physical Exam Constitutional: no apparent distress Eyes: anicteric sclera Ears, Nose, Mouth, Throat: moist mucous membranes Cardiovascular: irregularly irregular Respiratory: clear to auscultate bilat, no crackles Gastrointestinal: normoactive bowel sounds Genitourinary: gutierrez in urethra Skin: no rashes, no abrasions Neurologic: AAOx3 Psychiatric: cooperative, interactive ICD10 Worksheet Patient Problems: Problems Problem Status Onset Atrial fibrillation Acute
--- NOTE | 2017-09-10 14:30 | ASMTCMCOM ---
CM Note CM Note Notes: Pt admitted with afib. Pt will have pacemaker placed on Tuesday 09/12. CM will continue to follow for DC needs. Date Signed: 09/10/2017 02:29 PM Electronically Signed By:Macy Sellers LCSW
[2017-09-10] MEDS: HEPARIN/DEXTROSE 500 ML IV SCH (15:29)
[2017-09-10] MEDS ORDERED: WARFARIN SODIUM 4 MG TAB PO ONE (16:00)
[2017-09-10] MEDS: ZOLPIDEM TARTRATE 5 MG TAB PO PRN (21:18)
[2017-09-11] MEDS: DILTIAZEM 125 MG in D5W 125 ML IV SCH ×2 (00:16→11:23)
[2017-09-11 04:34] LABS: INR 1.6 (0.83-1.16); PROTIME(PATIENT) 19.2 SEC (12.0-15.0)
[2017-09-11] MEDS: NS 1,000 ML IV SCH ×2 (06:51→20:20)
[2017-09-11] MEDS: OMEGA-3 FATTY ACIDS 1,000 MG CAP PO SCH (08:50)
[2017-09-11] MEDS: SERTRALINE HCL 100 MG TAB PO SCH (08:50)
[2017-09-11] MEDS: ATORVASTATIN CALCIUM 40 MG TAB PO SCH (08:50)
[2017-09-11] MEDS: PRESERVISION AREDS2 FORMULA EYE VIT 1 EACH PO SCH (08:50)
[2017-09-11] MEDS: POLYETHYLENE GLYCOL 3350 17 GM PKT PO PRN (10:35)
--- NOTE | 2017-09-11 10:47 | PDCARPN ---
Cardiology Progress Note Assessment/Plan: Assessment: 1. Afib with RVR 2. Tachy-Jose syndrome 3. Hypotension 4. 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 CHAPITO on CPAP Plan: 1. Continue Diltiazem gtt 2. Continue Heparin gtt (stop Heparin 4 hours prior to pacemaker implant) 3. Pacemaker for tomorrow morning with Dr. Anand 4. Plan to stop Diltiazem after pacer implant and start Amiodarone 09/11/17 10:47 Subjective: Mrs. Morales is feeling much better today. She remains in Afib on Diltiazem gtt with improved rate control at 106 bpm. Reviewing telemtery demonstrates continued episodse of RVR with rates in the 140's and evidence of frequent pauses of approx 2 seconds at night. She remains hypotensive with SBP in the 90 's to 102. INR is 1.6. She is currently on Heparin gtt. Reviewed/Discussed With: multidisciplinary team Objective: Vital Signs (8 Hrs) Temp Pulse Resp BP Pulse Ox 09/11/17 07:07 36.7 C 95 20 93/70 L 95 09/11/17 04:00 36.8 C 108 H 18 97/67 L 95 Intake/Output (24 Hrs) 09/10/17 09/11/17 09/12/17 05:59 05:59 05:59 Intake Total 4606 Output Total 2450 1000 Balance 2156 -1000 Intake: Oral (ml) 1950 IV Infused (ml) 2656 Diltiazem 125 mg In D5w 185 125 ml @ Per Protocol IV CONT MARY Rx#:[id number] Heparin/Dextrose 500 ml @ 561 Per Protocol IV CONT MARY Rx#:[id number] Ns 1,000 ml @ 75 mls/hr 1910 IV CONT MARY Rx#: [id number] Output: Urine (ml) 2450 1000 Bedside Commode 2000 Toilet 450 1000 Other: Weight 75.1 kg Number of Voids Bedside Commode 1 Toilet 2 Result Diagrams: 09/11/17 03:15 09/10/17 03:12 - Physical Exam Constitutional: WDWN Ears, Nose, Mouth, Throat: moist mucous membranes Cardiovascular: no murmurs, no rubs, no gallops, irregularly irregular Respiratory: clear to auscultate bilat Musculoskeletal: no muscular tenderness Neurologic: AAOx3, CN II-XII grossly intact Psychiatric: cooperative, interactive, following commands ICD10 Worksheet Patient Problems: Problems Problem Status Onset Atrial fibrillation Acute
[2017-09-11] MEDS: HEPARIN/DEXTROSE 500 ML IV SCH (11:52)
[2017-09-11] MEDS: ZOLPIDEM TARTRATE 5 MG TAB PO PRN (20:19)
[2017-09-12] MEDS: DILTIAZEM 125 MG in D5W 125 ML IV SCH ×2 (03:26→15:47)
[2017-09-12 04:20] LABS: PLATELET COUNT 271 10^3/uL (150-400)
[2017-09-12 04:24] LABS: INR 1.49 (0.83-1.16); PROTIME(PATIENT) 18.2 SEC (12.0-15.0)
[2017-09-12] MEDS ORDERED: BACITRACIN IRRIGATION/NS 50,000 UNITS/1,000 ML BTL IRR ONE (06:00)
[2017-09-12] MEDS ORDERED: ceFAZolin 2 GM/SWFI 2 GM/20 ML SYR IVP ONE ×2 (06:00→11:00)
[2017-09-12] MEDS ORDERED: NS 1,000 ML IV ONE (06:00)
--- NOTE | 2017-09-12 08:33 | HOSPPROG ---
Hospitalist Progress Note Objective: Vital Signs Temp Pulse Resp BP Pulse Ox 36.8 C 113 H 16 101/60 96 09/12/17 08:00 09/12/17 08:00 09/12/17 08:00 09/12/17 08:00 09/12/17 08:00 Laboratory Results 09/12/17 03:22 09/12/17 03:22 09/11/17 09/12/17 09/13/17 06:59 06:59 06:59 Intake Total 4606 3745 Output Total 2450 3500 Balance 2156 245 PT 18.2 SEC (12.0-15.0) H 09/12/17 03:22 INR 1.49 (0.83-1.16) H 09/12/17 03:22 ICD10 Worksheet Patient Problems: Problems Problem Status Onset Atrial fibrillation Acute
--- NOTE | 2017-09-12 08:43 | PDCARPN ---
Cardiology Progress Note Assessment/Plan: Assessment: 1. Afib with RVR 2. Tachy-Jose syndrome 3. Hypotension 4. 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 CHAPITO on CPAP Plan: 1. Continue Diltiazem gtt 2. Heparin on hold in anticipation of pacer today at 11:00 am 3. After discussion with Dr. Anand, will plan to start Sotalol 120 mg bid post pacer 09/12/17 08:43 Subjective: Mrs. Morales is feeling well this AM. No new comlaints. She remians in Afib with rates in low 100's. She is scheduled for pacemaker today. She informs me that she is a [employer] and refuses a blood transfusion even if it meant that she would not survive. Witnesses to this statement were Dr. Mitchell and Dr. Anand as well at pt's and son. Heparin is currently off. She remains on Diltiazem gtt. INR 1.49 this AM. Reviewed/Discussed With: family, multidisciplinary team Objective: Vital Signs (8 Hrs) Temp Pulse Resp BP Pulse Ox 09/12/17 08:00 36.8 C 113 H 16 101/60 96 09/12/17 03:49 36.9 C 115 H 15 103/63 97 09/12/17 03:26 121 H Intake/Output (24 Hrs) 09/11/17 09/12/17 09/13/17 05:59 05:59 05:59 Intake Total 4606 3745 Output Total 2450 3500 Balance 2156 245 Intake: Oral (ml) 1950 1150 IV Infused (ml) 2656 2595 Diltiazem 125 mg In D5w 185 226 125 ml @ Per Protocol IV CONT MARY Rx#:[id number] Heparin/Dextrose 500 ml @ 561 585 Per Protocol IV CONT MARY Rx#:[id number] Ns 1,000 ml @ 75 mls/hr 1910 1784 IV CONT MARY Rx#: [id number] Output: Urine (ml) 2450 3500 Bedside Commode 2000 1700 Toilet 450 1800 Other: Weight 75.1 kg 76.3 kg Number of Voids Bedside Commode 1 1 Toilet 1 Number of Stools Toilet 1 Result Diagrams: 09/12/17 03:22 09/12/17 03:22 - Physical Exam Constitutional: WDWN Neurologic: AAOx3 Psychiatric: cooperative, interactive, following commands ICD10 Worksheet Patient Problems: Problems Problem Status Onset Atrial fibrillation Acute
--- NOTE | 2017-09-12 08:48 | CPEKG ---
Heart Rate: 105 RR Interval: 571 QRSD Interval: 82 QT Interval: 340 QTC Interval: 450 QRS [place]: -34 T Wave [place]: -43 EKG Severity - ABNORMAL ECG - EKG Impression: ATRIAL FIBRILLATION EKG Impression: LEFT AXIS DEVIATION Electronically Signed By: Ruddy Anand 12-Sep-2017 11:24:42
--- NOTE | 2017-09-12 11:23 | PDGENHP ---
History & Physical Chief Complaint: Bradycardia History of Present Illness: Atrial fibrillation with rapid ventricular response requiring multiple drugs including beta-blockers and calcium channel blockers to control heart rate. During sinus rhythm she has bradycardia and presyncope. Relevant Physical Exam: S1-S2 irregular and tachycardic lungs clear to auscultation alert and oriented x3 Cardiorespiratory Assessment: 72-year-old female, prior history of stroke related to atrial fibrillation, presenting with difficult to control ventricular rates during atrial fibrillation. She has heart rates up to 140 beats per minute at rest despite medical therapy. Increasing drug therapy causes hypotension and bradycardia. She needs a permanent pacemaker implantation for symptoms of dizziness and presyncope during sinus rhythm. Plan is to treat her with amiodarone for the next month. If we continue to have difficulties with her heart rate, plan AV node ablation in 1 month. Given her frail body habitus and prior history of stroke, she is not a candidate for pulmonary vein isolation procedure. Risks of pacemaker procedure were discussed with her. She, her and her son tell me that she does not want blood transfusions, she understands that may occur in case of a bleeding complication if blood transfusion is not provided when indicated. Risks of AV node ablation including vascular access complications, cardiac tamponade, permanent dependence on pacemaker were discussed with her and her family. Dr. Sunny Jones and Dr. Aaron Mitchell were present in the room when I had this discussion with the patient and her family.
[2017-09-12] MEDS ORDERED: BUPIVACAINE 0.5% 30 ML SDV ONE (11:28)
[2017-09-12] MEDS ORDERED: IOPAMIDOL (ISOVUE-300) 100 ML BTL ONE (11:28)
[2017-09-12] MEDS ORDERED: LIDOCAINE 1% 300 MG/30 ML SDV ONE (11:28)
[2017-09-12] MEDS ORDERED: PROPOFOL 200 MG/20 ML VIAL ONE (11:36)
[2017-09-12] MEDS ORDERED: ONDANSETRON 4 MG/2 ML VIAL ONE (11:44)
[2017-09-12] MEDS ORDERED: DEXAMETHASONE 4 MG/ML VIAL ONE (11:44)
[2017-09-12] MEDS ORDERED: PHENYLEPHRINE HCL 100 MCG/ML SYR ONE (12:15)
[2017-09-12] MEDS ORDERED: fentaNYL 100 MCG/2 ML INJ ONE (12:28)
--- NOTE | 2017-09-12 12:59 | HOSPPROG ---
Hospitalist Progress Note Assessment/Plan: Patient new to me on September 12 DIAGNOSES: -atrial fibrillation with rapid ventricular rate with medication induced bradycardia -history of stroke, requiring anticoagulation long-term -microcytic anemia is most likely iron deficiency (new problem September 12) -history of sleep apnea -history of hypertension currently well controlled -senile macular degeneration I visited the patient today with Dr. Jones and Dr. Anand Reviewed the iron deficiency anemia as well as all the Cardiology issues with the patient and her family PLANS: -plans for pacemaker placement today -resume anticoagulation when safe after pacer placement -begin sotalol after pacemaker placement (had previously planned amiodarone) -plans for possible AV node ablation in the future; patient not a good candidate for AFib ablation -I will order iron studies at this time, and look back in records but she probably will need a gastroenterology evaluation for her anemia SUBJECTIVE: Patient has had no new difficulties overnight OBJECTIVE Vitals reviewed: Remains tachycardic, otherwise stable vital signs without fever 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, 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: Atrial fibrillation Rate 110 to 120s Exam: alert oriented skin warm dry color ok resps not labored lungs clear BSs heart irregular abd soft nondistended nontender, bowel sounds present limbs warm, no edema iv site ok Laboratory data: INR 1.5 Chem panels normal CBC is stable today but it is showing ongoing microcytic anemia with low red blood cell count indicating most likely iron deficiency Objective: Vital Signs Temp Pulse Resp BP Pulse Ox 36.8 C 113 H 16 101/60 96 09/12/17 08:00 09/12/17 08:00 09/12/17 08:00 09/12/17 08:00 09/12/17 08:00 Laboratory Results 09/12/17 03:22 09/12/17 03:22 09/11/17 09/12/17 09/13/17 06:59 06:59 06:59 Intake Total 4606 3745 Output Total 2450 3500 Balance 2156 245 PT 18.2 SEC (12.0-15.0) H 09/12/17 03:22 INR 1.49 (0.83-1.16) H 09/12/17 03:22 - Time Spent With Patient Time Spent with Patient: greater than 35 minutes Time Spent with Patient: Greater than 35 minutes spent on this patients care, greater than 50% of time spent counseling, educating, and coordinating care regarding the above mentioned plan. ICD10 Worksheet Patient Problems: Problems Problem Status Onset Atrial fibrillation Acute Bradycardia Acute
--- NOTE | 2017-09-12 13:00 | EPPROC ---
Electrophysiology Procedure Note: PROCEDURE PERFORMED: 1. Implantation of an A/V Pacemaker 2. Subclavian vein angiography 3. Fluoroscopy INDICATION: Atrial fibrillation with rapid ventricular response Rate control drugs cause bradycardia with presyncope when in sinus rhythm PROCEDURE NOTE: Patient presented to the cardiac catheterization laboratory in a fasting, post absorptive state . Anesthesiologist Dr. Savage Koehler the administered sedation. The left infraclavicular area was prepped and draped in the usual sterile fashion. Lidocaine plus bupivacaine was used for local anesthesia. Left subclavian venography was performed by injection of iodinated contrast into the left antecubital vein. This was done to assure patency of the vein and also to assess for any anatomical aberrations. Using a combination of blunt and sharp dissection and electrocautery, the dissection was carried down to the prepectoral fascia. A pocket was made in this anatomical plane. All bleeding was controlled with electrocautery. The pocket was packed with gauze soaked in antibiotic solution. Fluoroscopy was utilized during the entire procedure for venous access and placement of the leads. Using a direct stick technique the left extrathoracic axillary vein was accessed with 2 sticks using the modified Seldinger technique. Placement of the guidewires into the venous system was confirmed by low-pressure blood return and also by visualizing the guidewires advancing into the inferior vena cava. A purse string suture was applied around the guidewires. Two #7 Indonesian sheaths were advanced under fluoroscopic guidance over the guidewire. An active fixation ventricular lead was advanced into the right ventricular apex and screwed in place. An active fixation atrial lead was advanced into the right atrial appendage and screwed in place. The peel away sheaths were removed. Pacing thresholds, sensing parameters and lead impedances were measured. There was no diaphragmatic stimulation at maximum output. The leads were sutured to the prepectoral fascia with 3 nonabsorbable sutures each. The pocket was again inspected for any bleeding. The leads were attached to the pacemaker securely. The pacemaker was inserted into the pocket and secured in place with a nonabsorbable suture. Fluoroscopy was performed in AGRSIA and CZECH planes to verify right-sided placement of the leads. Also fluoroscopy of the pacemaker pocket was performed. The pacemaker pocket was closed in 3 layers with absorbable monocryl sutures and sasha. Appropriate dressing was applied. The patient left the cardiac catheterization laboratory in stable condition. Serial Numbers: 1. Device: [employer] Edora DRT SN [id number] 2. Atrial Lead: [employer] Solia 45 cm serial [id number] 3. Ventricular Lead: [employer] Solia 52 cm serial [id number] Stimulation Thresholds & Impedance Measurements: 1. Atrial Lead atrial fibrillation, f waves 1.2 mV 507 Ohms 2. Ventricular Lead R-waves 8.5 mV, 0.6 volt, 0.4 milliseconds, 780 Ohms Jose Pacing Parameters 1. Pacing mode: DDDR, mode switch rate 160 beats per minute 2. Lower rate: 60ppm 3. Upper tracking rate: 130 ppm 4. Upper sensor rate: 130 ppm Patient Problems: Problems Problem Status Onset Bradycardia Acute Atrial fibrillation Acute
[2017-09-12] MEDS ORDERED: NALOXONE HCL 0.4 MG/ML INJ IVP PRN (13:08)
[2017-09-12] MEDS ORDERED: fentaNYL 100 MCG/2 ML INJ IVP PRN (13:08)
[2017-09-12] MEDS ORDERED: ACETAMINOPHEN 500 MG TAB PO PRN (13:08)
[2017-09-12] MEDS ORDERED: ONDANSETRON 4 MG/2 ML VIAL IVP PRN (13:08)
--- NOTE | 2017-09-12 13:08 | PDANEPAE ---
ANE History of Present Illness Pacemaker ANE Past Medical History - Cardiovascular History Hx Hypertension: Yes Hx Arrhythmias: Yes Hx Chest Pain: No Hx Palpitations: Yes - Pulmonary History Hx Oxygen in Use at Home: No Hx Sleep Apnea: Yes - Endocrine History Hx Diabetes: No - Chronic Pain History Chronic Pain: Yes ANE Review of Systems Review of Systems: ANE Patient History - Allergies Allergies/Adverse Reactions: No Known Allergies Allergy (Unverified 06/07/16 17:02) - Home Medications Home Medications: Atorvastatin Calcium [Lipitor 40 mg (*)] 40 mg PO DAILY 06/07/16 [Last Taken ] C/E/Zn/Cu/OM3/DHA/EPA/LUT/ZEAX [Preservision Areds 2 Softgel] 2 each PO DAILY [Last Taken 09/09/17] Center-3 Fatty Acids [Fish Oil 1000 mg (*)] 1,000 mg PO DAILY 06/07/16 [Last Taken 09/09/17] Aspirin EC [Aspirin EC 81 mg (*)] 81 mg PO DAILY 08/03/17 [Last Taken 09/09/17] Herbals/Supplements -Info Only 1 ea PO DAILY 08/03/17 [Last Taken 09/09/17] Polyethylene Glycol 3350 [Miralax 17 gm (*)] 17 gm PO DAILY PRN 08/03/17 [Last Taken 09/09/17] Sertraline HCl [Zoloft 100mg (*)] 100 mg PO DAILY 08/03/17 [Last Taken 09/09/17] Warfarin Sodium [Coumadin 4MG (*)] 4 mg PO DAILY16 08/03/17 [Last Taken 09/08/17 ] Sodium Chloride [Saline Nose [place]] 1 spray EACHNARE BID PRN 08/24/17 [Last Taken 09/09/17] Zolpidem Tartrate [Ambien Cr] 6.25 mg PO HS PRN 08/24/17 [Last Taken 09/08/17] Amiodarone HCl [Pacerone (*)] 200 mg PO AD 09/09/17 [Last Taken 09/09/17 200 MG] Clorazepate Dipotassium [Tranxene T-Tab (*)] 7.5 mg PO DAILY PRN 09/09/17 [Last Taken 09/09/17] - Smoking Hx Smoking Status: Never smoked ANE Labs/Vital Signs - Labs Result Diagrams: 09/12/17 03:22 09/12/17 03:22 - Vital Signs Blood Pressure: 101/60 Heart Rate: 113 Respiratory Rate: 16 O2 Sat (%): 96 Height: 160.02 cm Weight: 76.3 kg ANE Physical Exam - Airway Neck exam: FROM Mallampati Score: Class 2 Mouth exam: dentures - Pulmonary Pulmonary: clear to auscultation - Cardiovascular Cardiovascular: regular rate and rhythym - ASA Status ASA Status: III ANE Anesthesia Plan Anesthesia Plan: GA w LMA
--- NOTE | 2017-09-12 13:08 | POSTANESTH ---
Post Anesthetic Evaluation Cardiovascular Status: Normal, Stable Respiratory Status: Normal, Stable Level of Consciousness/Mental Status: Can Participate in Eval, Mildly Sleepy, Arousable Pain Control: Adequate, Prn Tx Ordered Nausea/Vomiting Control: Adequate, Prn Tx Ordered Complications Possibly Related to Anesthesia: None Noted
--- NOTE | 2017-09-12 13:24 | CPEKG ---
Heart Rate: 109 RR Interval: 550 QRSD Interval: 80 QT Interval: 336 QTC Interval: 453 QRS [place]: -23 T Wave [place]: -38 EKG Severity - ABNORMAL ECG - EKG Impression: ATRIAL FIBRILLATION EKG Impression: BORDERLINE LEFT AXIS DEVIATION EKG Impression: BORDERLINE T ABNORMALITIES, DIFFUSE LEADS Electronically Signed By: Kaden Smith 12-Sep-2017 15:31:42
[2017-09-12] MEDS: ATORVASTATIN CALCIUM 40 MG TAB PO SCH (15:43)
[2017-09-12] MEDS: PRESERVISION AREDS2 FORMULA EYE VIT 1 EACH PO SCH (15:44)
[2017-09-12] MEDS: WARFARIN SODIUM 5 MG TAB PO SCH (15:44)
[2017-09-12] MEDS: OMEGA-3 FATTY ACIDS 1,000 MG CAP PO SCH (15:44)
[2017-09-12] MEDS: SERTRALINE HCL 100 MG TAB PO SCH (15:44)
[2017-09-12] MEDS: NS 1,000 ML IV SCH (20:23)
[2017-09-12] MEDS: AMIODARONE HCL 200 MG TAB PO SCH (20:23)
[2017-09-12] MEDS: POLYETHYLENE GLYCOL 3350 17 GM PKT PO PRN (20:23)
[2017-09-12] MEDS: ACETAMINOPHEN 325 MG TAB PO PRN (20:28)
[2017-09-12] MEDS: ZOLPIDEM TARTRATE 5 MG TAB PO PRN (20:30)
[2017-09-13] MEDS: DILTIAZEM 125 MG in D5W 125 ML IV SCH ×3 (02:47→21:12)
[2017-09-13 04:24] LABS: PLATELET COUNT 303 10^3/uL (150-400)
[2017-09-13 04:43] LABS: INR 1.29 (0.83-1.16); PROTIME(PATIENT) 16.3 SEC (12.0-15.0)
--- NOTE | 2017-09-13 08:38 | CPEKG ---
Heart Rate: 115 RR Interval: 522 QRSD Interval: 86 QT Interval: 356 QTC Interval: 493 QRS [place]: -13 T Wave [place]: -47 EKG Severity - ABNORMAL ECG - EKG Impression: ATRIAL FIBRILLATION Electronically Signed By: Ruddy Anand 13-Sep-2017 08:40:22
[2017-09-13] MEDS: AMIODARONE HCL 200 MG TAB PO SCH ×2 (09:42→20:11)
[2017-09-13] MEDS: SERTRALINE HCL 100 MG TAB PO SCH (09:42)
[2017-09-13] MEDS: PRESERVISION AREDS2 FORMULA EYE VIT 1 EACH PO SCH (09:42)
[2017-09-13] MEDS: ATORVASTATIN CALCIUM 40 MG TAB PO SCH (09:43)
[2017-09-13] MEDS: OMEGA-3 FATTY ACIDS 1,000 MG CAP PO SCH (09:43)
[2017-09-13] MEDS: ACETAMINOPHEN 325 MG TAB PO PRN (09:49)
[2017-09-13] MEDS: POLYETHYLENE GLYCOL 3350 17 GM PKT PO PRN (09:49)
[2017-09-13] MEDS ORDERED: AMIODARONE HCL 200 ML IV ONE (11:16)
--- NOTE | 2017-09-13 11:25 | PDCARPN ---
Cardiology Progress Note Assessment/Plan: Assessment: 1. Afib with RVR 2. Tachy-Jose syndrome 3. Hypotension 4. 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 CHAPITO on CPAP Plan: 1. Continue Diltiazem gtt 2. Add Amiodarone gtt 3. Continiue oral Amiodarone at 400 mg bid 4. Keep NPO after midnight consideration ROSE DCCV 09/12/17 08:43 09/13/17 11:25 Subjective: Mrs. Morales is feeling well this AM. Iraj went well yesterday. Pacer interrogation today demonstrates normal device function. She remains in Afib with RVR. She was started on oral Amiodarone post pacer yesterday. She remains on Diltiazem gtt at 15 mg/hr. HR increase to the 170's with ambulation this AM. Pacer site without hematoma or ecchymosis. Reviewed/Discussed With: hospitalist, multidisciplinary team Objective: Vital Signs (8 Hrs) Temp Pulse Resp BP Pulse Ox 09/13/17 07:13 36.6 C 98 18 95/71 L 94 09/13/17 03:22 37 C 122 H 16 119/82 H 94 Intake/Output (24 Hrs) 09/12/17 09/13/17 09/14/17 05:59 05:59 05:59 Intake Total 3745 2729 250 Output Total 3500 350 250 Balance 245 2379 0 Intake: Oral (ml) 1150 690 250 IV Infused (ml) 2595 2039 Diltiazem 125 mg In D5w 226 389 125 ml @ Per Protocol IV CONT MARY Rx#:[id number] Heparin/Dextrose 500 ml @ 585 Per Protocol IV CONT MARY Rx#:[id number] Ns 1,000 ml @ 75 mls/hr 1784 1650 IV CONT MARY Rx#: [id number] Output: Urine (ml) 3500 350 250 Bedside Commode 1700 350 Toilet 1800 250 Other: Weight 76.3 kg 76.3 kg Number of Voids Bedpan 1 Bedside Commode 1 Toilet 1 Number of Stools Toilet 1 Result Diagrams: 09/13/17 03:26 09/13/17 03:26 - Physical Exam Constitutional: WDWN Ears, Nose, Mouth, Throat: moist mucous membranes Cardiovascular: irregularly irregular, other (pacer site without hematoma or ecchymosis ) Neurologic: AAOx3 Psychiatric: cooperative, interactive ICD10 Worksheet Patient Problems: Problems Problem Status Onset Atrial fibrillation Acute Bradycardia Acute
--- NOTE | 2017-09-13 14:57 | HOSPPROG ---
Hospitalist Progress Note Assessment/Plan: DIAGNOSES: -atrial fibrillation with rapid ventricular rate with medication induced bradycardia -history of stroke, requiring anticoagulation long-term -microcytic anemia is most likely iron deficiency (new problem September 12) -history of sleep apnea -history of hypertension currently well controlled -senile macular degeneration I visited the patient today with Dr. Jones and he and I reviewed her condition and treatment plan in detail today Reviewed the iron deficiency anemia as well as all the Cardiology issues with the patient and her family PLANS: -continue post pacemaker monitoring and activity restrictions -resume anticoagulation when safe after pacer placement, likely today will review with Dr. Anand -she is now on amiodarone drip in addition to her oral amiodarone and will continue that, may need increased dose -she has some mild overall volume overload but with her blood pressure is low, her pulse as fast at it is, and no pulmonary edema or hypoxemia or respiratory symptoms, will not diurese at present -will give some intravenous iron at this time; will need GI workup for iron deficiency in outpatient setting, need to follow hemoglobin very closely here at least daily -plans for possible AV node ablation in the future; patient not a good candidate for AFib ablation SUBJECTIVE: Patient feels better now after her pacemaker placement, with mild shoulder pain Remains weak and tired overall however OBJECTIVE Vitals reviewed: Remains very tachycardic at rest in the 130s but gets up to the 170s with ambulation, blood pressures are lower today and dropping below 100 systolic at times, no fever 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, 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: Rapid atrial fibrillation 130s at rest and up to 170s with exertion of walking Exam: alert oriented reasonably relaxed skin warm dry color ok resps not labored lungs clear BSs heart irregular and very rapid abd soft nondistended nontender, bowel sounds present limbs warm, still with by pedal edema Mentation good no signs of stroke, no other signs of peripheral emboli iv site ok Laboratory data: INR 1.29 Chem panels normal CBC is stable today but it is showing ongoing microcytic anemia Objective: Vital Signs Temp Pulse Resp BP Pulse Ox 36.9 C 99 18 104/59 L 97 09/13/17 11:40 09/13/17 11:40 09/13/17 11:40 09/13/17 11:40 09/13/17 11:40 Laboratory Results 09/13/17 03:26 09/13/17 03:26 09/12/17 09/13/17 09/14/17 06:59 06:59 06:59 Intake Total 3745 2729 250 Output Total 3500 350 250 Balance 245 2379 0 PT 16.3 SEC (12.0-15.0) H 09/13/17 03:26 INR 1.29 (0.83-1.16) H 09/13/17 03:26 - Time Spent With Patient Time Spent with Patient: greater than 35 minutes Time Spent with Patient: Greater than 35 minutes spent on this patients care, greater than 50% of time spent counseling, educating, and coordinating care regarding the above mentioned plan. ICD10 Worksheet Patient Problems: Problems Problem Status Onset Atrial fibrillation Acute Bradycardia Acute
--- NOTE | 2017-09-13 15:57 | ASMTCMCOM ---
CM Note CM Note Notes: 09/13/2017 Case Management Note Reviewed chart and discussed pt with RN. There are no case management d/c needs identified at this time d/t pt marital status and family support. Per PT 09/13 note, pt is at baseline functionality. Case Management d/c poc: home with family support and follow up as directed. Case Management available if needs change. Date Signed: 09/13/2017 03:56 PM Electronically Signed By:Shiela Dsouza RN
[2017-09-13] MEDS: SODIUM FERRIC GLUCONAT/SUCROSE 125 MG in NS 100 ML IV SCH (16:42)
[2017-09-13] MEDS ORDERED: AMIODARONE HCL 540 MG in D5W 300 ML IV ONE (18:00)
[2017-09-13] MEDS: WARFARIN SODIUM 5 MG TAB PO SCH (18:00)
[2017-09-13] MEDS: NS 1,000 ML IV SCH (18:02)
[2017-09-13] MEDS: ZOLPIDEM TARTRATE 5 MG TAB PO PRN (20:11)
[2017-09-14 06:26] LABS: INR 1.61 (0.83-1.16); PROTIME(PATIENT) 19.3 SEC (12.0-15.0)
[2017-09-14] MEDS: NS 1,000 ML IV SCH ×2 (07:00→08:08)
[2017-09-14] MEDS: DILTIAZEM 125 MG in D5W 125 ML IV SCH (08:09)
--- NOTE | 2017-09-14 08:46 | PDCARPN ---
Cardiology Progress Note Assessment/Plan: Assessment: 1. Afib with RVR 2. Tachy-Jose syndrome 3. Hypotension 4. 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 CHAPITO on CPAP Plan: 1. Continue Diltiazem gtt 2. continue Amiodarone gtt 3. Continiue oral Amiodarone at 400 mg bid 4. Keep NPO after midnight consideration ROSE DCCV 09/14/17 08:45 Subjective: Mrs. Morales is feeling well. No complaints. She remains in Afib with rates primarily in the mid 90's to 110's. She is on Amiodarone 400 mg po bid, Amiodarone gtt and Diltiazem gtt at 10mg/hr. BP is stable. INR is 1.6 today. Pacer site is without hematoma or ecchymosis. No dizziness, lightheadedness or syncope. No sob, ulloa, pnd, orthopnea. She has a trace of ankle edema. Reviewed/Discussed With: multidisciplinary team Objective: Vital Signs (8 Hrs) Temp Pulse Resp BP Pulse Ox 09/14/17 08:00 36.8 C 98 16 104/71 93 09/14/17 03:26 36.8 C 103 H 16 111/74 97 Intake/Output (24 Hrs) 09/13/17 09/14/17 09/15/17 05:59 05:59 05:59 Intake Total 2729 3426 Output Total 350 950 Balance 2379 2476 Intake: Oral (ml) 690 1500 IV Infused (ml) 2039 1926 Amiodarone HCl 200 ml @ 200 33.333 mls/hr IV ONCE ONE Rx#:[id number] Amiodarone HCl 540 mg In 351 D5w 300 ml @ 16.667 mls/ hr IV ONCE ONE Rx#: [id number] Diltiazem 125 mg In D5w 389 254 125 ml @ Per Protocol IV CONT MARY Rx#:[id number] Ns 1,000 ml @ 75 mls/hr 1650 1021 IV CONT MARY Rx#: [id number] Sodium Ferric Gluconat/ 100 Sucrose 125 mg In Ns 100 ml @ 110 mls/hr IV DAILY MARY Rx#:[id number] Output: Urine (ml) 350 950 Bedside Commode 350 150 Toilet 800 Other: Weight 76.3 kg Intake Quantity Yes Sufficient Number of Voids Bedpan 1 Bedside Commode 1 Toilet 1 Result Diagrams: 09/13/17 03:26 09/13/17 03:26 ICD10 Worksheet Patient Problems: Problems Problem Status Onset Atrial fibrillation Acute Bradycardia Acute
[2017-09-14] MEDS: AMIODARONE HCL 200 MG TAB PO SCH ×2 (08:49→21:20)
[2017-09-14] MEDS: SERTRALINE HCL 100 MG TAB PO SCH (08:49)
[2017-09-14] MEDS: ATORVASTATIN CALCIUM 40 MG TAB PO SCH (08:49)
[2017-09-14] MEDS: OMEGA-3 FATTY ACIDS 1,000 MG CAP PO SCH (08:49)
[2017-09-14] MEDS: PRESERVISION AREDS2 FORMULA EYE VIT 1 EACH PO SCH (08:49)
[2017-09-14] MEDS: ACETAMINOPHEN 325 MG TAB PO PRN ×2 (08:50→21:20)
[2017-09-14] MEDS: POLYETHYLENE GLYCOL 3350 17 GM PKT PO PRN (09:38)
[2017-09-14] MEDS: SODIUM FERRIC GLUCONAT/SUCROSE 125 MG in NS 100 ML IV SCH (09:43)
--- NOTE | 2017-09-14 13:15 | HOSPPROG ---
Hospitalist Progress Note Assessment/Plan: DIAGNOSES: -atrial fibrillation with rapid ventricular rate with medication induced bradycardia; now status post successful placement of pacemaker -ongoing rapid atrial fibrillation -attempting to cardiovert with amiodarone at this time; if she does not cardiovert may need to do electrical cardioversion for plans for possibly doing that tomorrow -history of stroke, requiring anticoagulation long-term; INR increasing as we have resumed it after her procedure, will follow daily -iron deficiency anemia (new problem September 12); she cannot recall when but in the past she did have a colonoscopy for screening but no other evaluations have ever been done for iron deficiency -history of sleep apnea; she will have ongoing follow-up for this as outpatient with her sleeps physician -history of hypertension currently well controlled -senile macular degeneration I visited the patient today with Dr. Jones and he and I reviewed her condition and treatment plan in detail today Also visited patient is part of a multidisciplinary rounds today PLANS: -continue post pacemaker monitoring and activity restrictions -is back on Coumadin with INR increasing, still subtherapeutic, no bridge now due to her procedure -she is now on amiodarone drip in addition to her oral amiodarone and will continue that 1 more day -she has some mild overall volume overload but with her blood pressure is low, her pulse as fast at it is, and no pulmonary edema or hypoxemia or respiratory symptoms, will not diurese at present -daily intravenous iron at this time; will need GI workup for iron deficiency in outpatient setting, need to follow hemoglobin very closely here at least daily -plans for possible AV node ablation in the future; patient not a good candidate for AFib ablation SUBJECTIVE: Still weak and tired. No shortness of breath. Mild intermittent discomfort at her pacer site but no bleed No fever symptoms No lightheadedness or weakness with walking OBJECTIVE Vitals reviewed: Overall heart rate is better controlled in down below 100 but she still gets up to 170s with ambulation, blood pressures respirations good no fever Preparation Supervisor Canning, my review: Atrial fibrillation now with overall better rate control but still gets up to very high rates with ambulation Exam: alert oriented reasonably relaxed skin warm dry color ok resps not labored lungs clear BSs There is no sign of any bleeding or other swelling or abnormalities at her pacer insertion site heart irregular abd soft nondistended nontender, bowel sounds present limbs warm, notably less edema at this time Mentation good no signs of stroke, no other signs of peripheral emboli iv site ok Laboratory data: INR 1.6 Objective: Vital Signs Temp Pulse Resp BP Pulse Ox 36.7 C 107 H 19 101/71 96 09/14/17 11:03 09/14/17 11:03 09/14/17 11:03 09/14/17 11:03 09/14/17 11:03 Laboratory Results 09/13/17 03:26 09/13/17 03:26 09/13/17 09/14/17 09/15/17 06:59 06:59 06:59 Intake Total 2729 3426 250 Output Total 350 950 400 Balance 2379 2476 -150 PT 19.3 SEC (12.0-15.0) H 09/14/17 06:02 INR 1.61 (0.83-1.16) H 09/14/17 06:02 - Time Spent With Patient Time Spent with Patient: greater than 35 minutes Time Spent with Patient: Greater than 35 minutes spent on this patients care, greater than 50% of time spent counseling, educating, and coordinating care regarding the above mentioned plan. ICD10 Worksheet Patient Problems: Problems Problem Status Onset Atrial fibrillation Acute Bradycardia Acute
[2017-09-14] MEDS: WARFARIN SODIUM 5 MG TAB PO SCH (16:53)
[2017-09-14] MEDS: ZOLPIDEM TARTRATE 5 MG TAB PO PRN (21:20)
[2017-09-15 04:38] LABS: PLATELET COUNT 226 10^3/uL (150-400)
[2017-09-15 04:46] LABS: INR 1.88 (0.83-1.16); PROTIME(PATIENT) 21.7 SEC (12.0-15.0)
[2017-09-15] MEDS ORDERED: NS 500 ML IV ONE (09:34)
[2017-09-15] MEDS ORDERED: ATROPINE SULFATE 1 MG/10 ML SYR IVP ONE (09:34)
--- NOTE | 2017-09-15 09:42 | PDCARPN ---
Cardiology Progress Note Assessment/Plan: Assessment: 1. Afib with RVR 2. Tachy-Jose syndrome 3. Hypotension 4. 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 CHAPITO on CPAP Plan: 1. ROSE/DCCV today with anesthesia 2. Add Lovenox 80 mg SQ bid in the setting of sub therapeutic INR of 1.88 3. Continiue oral Amiodarone at 400 mg bid 4. Will need post cardioversion pacer check 09/14/17 08:45 09/15/17 09:41 Subjective: Mrs. Morales remains in Afib with RVR despite Amiodarone 400 mg bid and Amiodarone gtt over previous 48 hours. She is sp pacer implant on TuesdaySep 12. Her INR is sub therapeutic at 1.88. Will plan on starting Lovenox and arrange for ROSE/DCCV in conjunction with anesthesia. Objective: Vital Signs (8 Hrs) Temp Pulse Resp BP Pulse Ox 09/15/17 07:24 36.7 C 124 H 18 128/85 H 97 09/15/17 02:08 36.7 C 110 H 19 102/83 H 97 Intake/Output (24 Hrs) 09/14/17 09/15/17 09/16/17 05:59 05:59 05:59 Intake Total 3426 2205 Output Total 950 3500 100 Balance 2476 -1295 -100 Intake: Oral (ml) 1500 1250 IV Infused (ml) 1926 955 Amiodarone HCl 200 ml @ 200 33.333 mls/hr IV ONCE ONE Rx#:[id number] Amiodarone HCl 540 mg In 351 300 D5w 300 ml @ 16.667 mls/ hr IV ONCE ONE Rx#: [id number] Diltiazem 125 mg In D5w 254 45 125 ml @ Per Protocol IV CONT MARY Rx#:[id number] Ns 1,000 ml @ 75 mls/hr 1021 500 IV CONT [facility] Rx#: [id number] Sodium Ferric Gluconat/ 100 110 Sucrose 125 mg In Ns 100 ml @ 110 mls/hr IV DAILY [facility] Rx#:[id number] Output: Urine (ml) 950 3500 100 Bedside Commode 150 2300 Toilet 800 1200 100 Other: Intake Quantity Yes Yes Sufficient Number of Voids Bedside Commode 1 1 Toilet 1 Number of Stools Toilet 1 Result Diagrams: 09/15/17 03:35 09/15/17 03:35 - Physical Exam Constitutional: WDWN Ears, Nose, Mouth, Throat: moist mucous membranes Cardiovascular: irregularly irregular, other (pacer site without hematoma or ecchymosis. ) Respiratory: clear to auscultate bilat ICD10 Worksheet Patient Problems: Problems Problem Status Onset Atrial fibrillation Acute Bradycardia Acute
[2017-09-15] MEDS: SODIUM FERRIC GLUCONAT/SUCROSE 125 MG in NS 100 ML IV SCH (09:53)
[2017-09-15] MEDS: OMEGA-3 FATTY ACIDS 1,000 MG CAP PO SCH (09:59)
[2017-09-15] MEDS: ATORVASTATIN CALCIUM 40 MG TAB PO SCH (10:00)
[2017-09-15] MEDS: PRESERVISION AREDS2 FORMULA EYE VIT 1 EACH PO SCH (10:00)
[2017-09-15] MEDS: AMIODARONE HCL 200 MG TAB PO SCH ×2 (10:00→20:42)
[2017-09-15] MEDS: SERTRALINE HCL 100 MG TAB PO SCH (10:00)
[2017-09-15] MEDS: ENOXAPARIN 80 MG/0.8 ML SYR SC SCH ×2 (10:45→20:43)
[2017-09-15 11:16] LABS: INR 1.81 (0.83-1.16); PROTIME(PATIENT) 21.1 SEC (12.0-15.0)
--- NOTE | 2017-09-15 12:12 | CPEKG ---
Heart Rate: 141 RR Interval: 426 QRSD Interval: 78 QT Interval: 304 QTC Interval: 466 QRS [place]: -29 T Wave [place]: 7 EKG Severity - ABNORMAL ECG - EKG Impression: ATRIAL FIBRILLATION EKG Impression: BORDERLINE LEFT AXIS DEVIATION EKG Impression: BORDERLINE T ABNORMALITIES, ANTERIOR LEADS Electronically Signed By: Kaden Smith 15-Sep-2017 13:06:43
--- NOTE | 2017-09-15 12:53 | HOSPPROG ---
Hospitalist Progress Note Assessment/Plan: DIAGNOSES: -atrial fibrillation with rapid ventricular rate with medication induced bradycardia; now status post successful placement of pacemaker -ongoing rapid atrial fibrillation despite several days of amiodarone at high doses -history of stroke, requiring anticoagulation long-term; INR increasing as we have resumed it after her procedure, will follow daily -iron deficiency anemia (new problem September 12); she cannot recall when but in the past she did have a colonoscopy for screening but no other evaluations have ever been done for iron deficiency -history of sleep apnea; she will have ongoing follow-up for this as outpatient with her sleeps physician; using CPAP here -history of hypertension currently well controlled -senile macular degeneration I visited the patient today with Dr. Jones and he and I reviewed her condition and treatment plan in detail today Also visited patient is part of a multidisciplinary rounds today PLANS: -ROSE and possible electrocardioversion today, decide on future plans for AFib management based on results -given her sleep apnea will need to watch her respiratory status carefully after sedation for her procedure today -continue post pacemaker monitoring and activity restrictions -is back on Coumadin with INR increasing, still subtherapeutic, she is given an extra dose of Lovenox today with an expected cardioversion later today -she has some mild overall volume overload but with her blood pressure is low, her pulse as fast at it is, and no pulmonary edema or hypoxemia or respiratory symptoms, will not diurese at present -daily intravenous iron at this time; will need GI workup for iron deficiency in outpatient setting, need to follow hemoglobin very closely here at least daily -plans for possible AV node ablation in the future; patient not a good candidate for AFib ablation SUBJECTIVE: Still weak and tired. No shortness of breath. No chest discomfort, no other new symptoms No fever symptoms OBJECTIVE Vitals reviewed: Has remained in rapid AFib overnight, blood pressure respirations and temp is all normal Ball Truing Machine Operator, my review: Atrial fibrillation now higher heart rates again Exam: alert oriented reasonably relaxed skin warm dry color ok resps not labored lungs clear BSs There is no sign of any bleeding or other swelling or abnormalities at her pacer insertion site heart irregular abd soft nondistended nontender, bowel sounds present limbs warm, mild by pale edema present Mentation good no signs of stroke, no other signs of peripheral emboli iv site ok Laboratory data: INR 1.8 Objective: Vital Signs Temp Pulse Resp BP Pulse Ox 36.7 C 124 H 18 128/85 H 97 09/15/17 07:24 09/15/17 07:24 09/15/17 07:24 09/15/17 07:24 09/15/17 07:24 Laboratory Results 09/15/17 03:35 09/15/17 10:57 09/14/17 09/15/17 09/16/17 06:59 06:59 06:59 Intake Total 3426 2205 Output Total 950 3500 100 Balance 2476 -1295 -100 PT 21.1 SEC (12.0-15.0) H 09/15/17 10:57 INR 1.81 (0.83-1.16) H 09/15/17 10:57 - Time Spent With Patient Time Spent with Patient: greater than 35 minutes Time Spent with Patient: Greater than 35 minutes spent on this patients care, greater than 50% of time spent counseling, educating, and coordinating care regarding the above mentioned plan. ICD10 Worksheet Patient Problems: Problems Problem Status Onset Atrial fibrillation Acute Bradycardia Acute
[2017-09-15] MEDS ORDERED: PROPOFOL 200 MG/20 ML VIAL ONE (15:06)
[2017-09-15] MEDS ORDERED: NALOXONE HCL 0.4 MG/ML INJ IVP PRN (15:16)
[2017-09-15] MEDS ORDERED: ONDANSETRON 4 MG/2 ML VIAL IVP PRN (15:16)
--- NOTE | 2017-09-15 15:16 | PDANEPAE ---
ANE History of Present Illness ROSE/CV ANE Past Medical History - Cardiovascular History Hx Hypertension: Yes Hx Arrhythmias: Yes Hx Chest Pain: No Hx Palpitations: Yes - Pulmonary History Hx Oxygen in Use at Home: No Hx Sleep Apnea: Yes - Endocrine History Hx Diabetes: No - Chronic Pain History Chronic Pain: Yes ANE Review of Systems Review of Systems: - Pacemaker Pacemaker Content Management Specialist: Biotronik Pacemaker Model: Edora 8 DR-T Pacemaker Mode: DDDR ANE Patient History - Allergies Allergies/Adverse Reactions: No Known Allergies Allergy (Unverified 06/07/16 17:02) - Home Medications Home Medications: Atorvastatin Calcium [Lipitor 40 mg (*)] 40 mg PO DAILY 06/07/16 [Last Taken ] C/E/Zn/Cu/OM3/DHA/EPA/LUT/ZEAX [Preservision Areds 2 Softgel] 2 each PO DAILY [Last Taken 09/09/17] [place]-3 Fatty Acids [Fish Oil 1000 mg (*)] 1,000 mg PO DAILY 06/07/16 [Last Taken 09/09/17] Aspirin EC [Aspirin EC 81 mg (*)] 81 mg PO DAILY 08/03/17 [Last Taken 09/09/17] Herbals/Supplements -Info Only 1 ea PO DAILY 08/03/17 [Last Taken 09/09/17] Polyethylene Glycol 3350 [Miralax 17 gm (*)] 17 gm PO DAILY PRN 08/03/17 [Last Taken 09/09/17] Sertraline HCl [Zoloft 100mg (*)] 100 mg PO DAILY 08/03/17 [Last Taken 09/09/17] Warfarin Sodium [Coumadin 4MG (*)] 4 mg PO DAILY16 08/03/17 [Last Taken 09/08/17 ] Sodium Chloride [Saline [place]] 1 spray EACHNARE BID PRN 08/24/17 [Last Taken 09/09/17] Zolpidem Tartrate [Ambien Cr] 6.25 mg PO HS PRN 08/24/17 [Last Taken 09/08/17] Amiodarone HCl [Pacerone (*)] 200 mg PO AD 09/09/17 [Last Taken 09/09/17 200 MG] Clorazepate Dipotassium [Tranxene T-Tab (*)] 7.5 mg PO DAILY PRN 09/09/17 [Last Taken 09/09/17] - Smoking Hx Smoking Status: Never smoked ANE Labs/Vital Signs - Labs Result Diagrams: 09/15/17 03:35 09/15/17 10:57 - Vital Signs Blood Pressure: 127/93 Heart Rate: 135 Respiratory Rate: 17 O2 Sat (%): 97 Height: 160.02 cm Weight: 76.3 kg ANE Physical Exam - Airway Neck exam: FROM Mallampati Score: Class 2 Mouth exam: normal dental/mouth exam - Pulmonary Pulmonary: clear to auscultation - Cardiovascular Cardiovascular: irregularly irregular - ASA Status ASA Status: III ANE Anesthesia Plan Anesthesia Plan: GA with mask
--- NOTE | 2017-09-15 15:23 | PDHPUP ---
History & Physical Update H&P update statement: This history and physical update is based on an assessment of the patient which was completed after admission or registration (within 24 hours), but prior to the surgery/procedure. 72 year old female with afib with rvr, unresponsive to amiodarone gtt H&P update: H&P reviewed & patient examined, no change in patient's condition since H&P completed
--- NOTE | 2017-09-15 15:53 | CPEKG ---
Heart Rate: 61 RR Interval: 984 P-R Interval: 168 QRSD Interval: 82 QT Interval: 440 QTC Interval: 444 P [place]: 54 QRS [place]: -32 T Wave [place]: 14 EKG Severity - ABNORMAL ECG - EKG Impression: ATRIAL-PACED COMPLEXES EKG Impression: LEFT AXIS DEVIATION EKG Impression: BORDERLINE R WAVE PROGRESSION, ANTERIOR LEADS EKG Impression: BORDERLINE T ABNORMALITIES, ANTERIOR LEADS Electronically Signed By: Kaden Smith 17-Sep-2017 09:01:24
--- NOTE | 2017-09-15 16:07 | CPR ---
[f rep st] NONINVASIVE CARDIAC PROCEDURE REPORT DATE OF PROCEDURE: 09/15/2017 PROCEDURE PERFORMED: ROSE guided cardioversion. INDICATION FOR PROCEDURE: Atrial fibrillation with rapid ventricular response. PROCEDURE: After informed consent was obtained, the patient was brought to the cardiovascular proced ure suite. With the assistance of Anesthesia, she was sedated with propofol. A ROSE probe was passed without incident. ROSE probe was used to take images of all cardiac structures with primary focus on the left atrial appendage and left atrium. There was no evidence of left atrial or left atrial appe ndage thrombus. Please see complete echocardiogram report for full details. ROSE probe was removed w ithout incident. The patient was then prepped for cardioversion. The patient underwent an initial shock of 150 joules of synchronized biphasic energy. This resulted in brief buddhism of sinus rhythm, but she return ed to atrial fibrillation with rapid ventricular response with rates in the 130s to 140s. She underw ent a 2nd shock with 200 joules of biphasic synchronized energy, which returned her to normal sinus r hythm at 60 beats per minute. She tolerated the procedure well. There were no postoperative complications. At the time of this di ctation, she is awaking from sedation. PLAN: 1. Patient will continue Lovenox bridge until INR is greater than 2. 2. Patient will continue on amiodarone 400 mg p.o. b.i.d. 3. Patient will follow up with Dr. Bedolla as well as Dr. Anand. /[id number]/MODL
[2017-09-15] MEDS: WARFARIN SODIUM 5 MG TAB PO SCH (16:50)
--- NOTE | 2017-09-15 17:09 | ECHO ---
[email or web address] [place] [id number] Main: [phone] Fax: Transesophageal Echocardiography Name: VIRGINIA KWONG MR#: [id number] Study Date: 09/15/2017 Study Time: 03:10 PM Date of : 1945 Age: 72 year(s) Height: ( ) Weight: ( ) BSA: Gender: Female Examination: ROSE Indication: pre-cardioversion Image Quality: Contrast: Requested by: Jack Brandt Heart Rate: Rhythm: BP: / Procedure Staff Radiographer Cardiac Catheterization: Brandi Ricardo [facility] Reading Physician: Sunny Jones Requesting Provider: ROSE Exam Details Measurements: Chambers Valvular Assessment AV/MV Valvular Assessment TV/PV Normal Normal Normal Name Value Range Name Value Range Name Value Range EF Range: 30-35 % AV Vmax: 0.91 m/s (1 m/s-1.7 m/s) AV maxP mmHg ( - ) Additional Measurements: Findings: Left Ventricle: Normal size left ventricle. The ejection fraction is estimated to be 30-35 %. Right Ventricle: There is a pacemaker lead noted in the right ventricle. Left Atrium: Left atrial enlargement. No thrombus is noted in the left atrium. Left Atrial Appendage: No thrombus in left appendage. Right Atrium: Right atrial enlargement. There is a pacemaker lead noted in the right atrium. Mitral Valve: The mitral valve is normal in appearance and function. Mild to moderate mitral regurgitation. Patient: VIRGINIA KWONG Study Date: 09/15/2017 Page 1 of 2 03:10 PM Aortic Valve: The aortic valve is tri-leaflet. There is no significant aortic valve regurgitation. No aortic valve stenosis is present. Tricuspid Valve: The tricuspid valve is normal in appearance and function. Mild tricuspid regurgitation is present. Pulmonic Valve: The pulmonic valve is normal in appearance and function. There is no pulmonic regurgitation seen. Pericardium: Trivial anterior pericardial effusion. l1n (No Signature Object) Patient: VIRGINIA KWONG Study Date: 09/15/2017 Page 2 of 2 03:10 PM [id number]
[2017-09-15] MEDS: ACETAMINOPHEN 325 MG TAB PO PRN (20:42)
[2017-09-15] MEDS: ZOLPIDEM TARTRATE 5 MG TAB PO PRN (20:42)
[2017-09-16 08:30] VITALS: PULSE 72; RESP 18
[2017-09-16] MEDS ORDERED: AMIODARONE HCL 200 MG TAB PO SCH (09:00)
[2017-09-16] MEDS: OMEGA-3 FATTY ACIDS 1,000 MG CAP PO SCH (09:00)
[2017-09-16] MEDS: SERTRALINE HCL 100 MG TAB PO SCH (09:00)
[2017-09-16] MEDS: POLYETHYLENE GLYCOL 3350 17 GM PKT PO PRN (09:00)
[2017-09-16] MEDS: ATORVASTATIN CALCIUM 40 MG TAB PO SCH (09:00)
[2017-09-16] MEDS: PRESERVISION AREDS2 FORMULA EYE VIT 1 EACH PO SCH (09:00)
--- NOTE | 2017-09-16 09:06 | PDCARPN ---
Cardiology Progress Note Assessment/Plan: Assessment: 1. Afib with RVR 2. Tachy-Jose syndrome 3. Hypotension 4. 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 CHAPITO on CPAP Plan: 1. Decrease Amiodarone to 200 mg daily 2. INR pending, if INR > 2 would not give LOvenox 3. Continue coumadin, most likely return to home dosing at 4 mg daily 4. Would not restart Norvasc at this time 5. Pacer and wound check, Sep 20 at 2:30 in the [place] office 09/16/17 09:04 Subjective: Mrs. Morales is feeling well. No new complaints. She is currently A paced at 60 bpm. She underwent successful ROSE/DCCV yesterday. BP remains stable. INR pending this AM. Reviewed/Discussed With: multidisciplinary team Objective: Vital Signs (8 Hrs) Temp Pulse Resp BP Pulse Ox 09/16/17 08:29 36.5 C 72 18 135/73 H 94 09/16/17 03:41 36.6 C 65 16 117/62 99 Intake/Output (24 Hrs) 09/15/17 09/16/17 09/17/17 05:59 05:59 05:59 Intake Total 2205 600 Output Total 3500 1600 Balance -1295 -1000 Intake: Oral (ml) 1250 500 IV Intake (ml) 100 IV Infused (ml) 955 Amiodarone HCl 540 mg In 300 D5w 300 ml @ 16.667 mls/ hr IV ONCE ONE Rx#: [id number] Diltiazem 125 mg In D5w 45 125 ml @ Per Protocol IV CONT [facility] Rx#:[id number] Ns 1,000 ml @ 75 mls/hr 500 IV CONT [facility] Rx#: [id number] Sodium Ferric Gluconat/ 110 Sucrose 125 mg In Ns 100 ml @ 110 mls/hr IV DAILY [facility] Rx#:[id number] Output: Urine (ml) 3500 1600 Bedside Commode 2300 1200 Toilet 1200 400 Other: Weight 76.3 kg Intake Quantity Yes Yes Sufficient Number of Voids Bedside Commode 1 3 Number of Stools Toilet 1 Result Diagrams: 09/15/17 03:35 09/15/17 10:57 - Physical Exam Constitutional: WDWN Ears, Nose, Mouth, Throat: moist mucous membranes Cardiovascular: regular rate and rhythm ICD10 Worksheet Patient Problems: Problems Problem Status Onset Atrial fibrillation Acute Bradycardia Acute
[2017-09-16 09:24] LABS: INR 2.06 (0.83-1.16); PROTIME(PATIENT) 23.3 SEC (12.0-15.0)
[2017-09-16] MEDS: ENOXAPARIN 80 MG/0.8 ML SYR SC SCH (09:56)
[2017-09-16 12:23] VITALS: BP 117/69; TEMP 99; O2SAT 93
--- NOTE | 2017-09-16 12:51 | PDDCSUM ---
Discharge Summary Discharge Summary: DISCHARGE DIAGNOSES: -atrial fibrillation with rapid ventricular rate with medication induced bradycardia -status post successful placement of pacemaker -status post successful elective cardioversion to sinus rhythm, ongoing amiodarone treatment -acute systolic congestive heart failure -newly identified iron deficiency anemia, uncertain etiology -history of stroke, requiring anticoagulation long-term; INR increasing as we have resumed it after her procedure, will follow daily -history of sleep apnea on chronic CPAP -history of hypertension currently well controlled -senile macular degeneration CONSULTANTS: Dr. Thompson while Dr. Ruddy Anand PROCEDURES: Placement of permanent pacemaker; Biotronik device with 2 leads, DDDR mode Trans the esophageal echocardiogram without thrombus, successful electrical cardioversion to sinus rhythm HOSPITAL COURSE SUMMARY: This patient with long history of systolic heart disease and atrial fibrillation on amiodarone and diltiazem and metoprolol at home comes in with atrial fibrillation with both alternating rapid and bradycardic heart rates, as well as some acute systolic heart failure with mild pulmonary and more significant peripheral edema. She was started on extra dosing of amiodarone but did not convert to sinus rhythm. She therefore underwent treatment with a permanent pacemaker which was successfully implanted without complications and has been functioning normally since then. We then turned attention to rate control with diltiazem but on high-dose diltiazem drip along with the amiodarone , she did not cardiovert after several days. She then underwent a electrocardioversion after no clot was seen on a ROSE. The patient has been anticoagulated along other than during her Batista procedure. The patient has remained in stable sinus rhythm since her cardioversion and feels notably better. She does still have some mild edema. She was initially diuresed out although blood pressures got a little bit low numb over hospital stay and this was delayed. At this point she will be taking some ongoing oral diuretic to slowly bring her back to a dry weight. She is stable for discharge home at this time. There has been no evidence of acute ischemic issues at this time. The patient was also anemic and with testing here is identified that she has significant iron deficiency. She was given 3 doses of intravenous iron sucrose and will be discharged with oral iron supplements. There was no evidence of any acute bleeding and her hemoglobin was stable here. I reviewed the iron deficiency and its potential etiologies with the patient and her son. She has had 1 colonoscopy in the past with a acid pump operator in [place] and she will follow up with that physician in the next 3 to 4 weeks to arrange endoscopy evaluation of the current iron deficiency. PENDING TEST RESULTS: None She will require outpatient evaluation for cause of iron deficiency MEDICATION CHANGES: Diltiazem was stopped Metoprolol is continued at previous dose Lasix added at 20 mg daily Amiodarone is decreased to 200 mg daily Oral iron supplements are added FOLLOW-UP PLAN: With Dr. Bedolla and Cardiology Clinic next week With her acid pump operator in [place] within 3-4 weeks I have discussed with her that she should have her acid pump operator's talk with the cardiology team regarding safety of sedation for any endoscopic procedures and I have reviewed this with Dr. Bedolla as well Greater than 35 minutes bedside and care coordination time today
--- NOTE | 2017-09-16 14:03 | ECHO ---
[email or web address] [address] Main: [phone] Fax: Transthoracic Echocardiogram Name: VIRGINIA KWONG MR#: [id number] Study Date: 09/16/2017 Study Time: 09:59 AM Date of : 1945 Age: 72 year(s) Height: 160 cm (63 in.) Weight: 77.11 kg (170 lb.) BSA: 1.8 m2 Gender: Female Examination: Limited Echo Indication: Eval LV function post cardioversion/R/O pericardial effusion Image Quality: Contrast: Requested by: Jack Brandt BP: 135 mmHg/73 mmHg Heart Rate: Rhythm: Indication: Eval LV function post cardioversion/R/O pericardial effusion Procedure Staff Head Porter: Amaya Celestin [facility] Reading Physician: Sunny Jones Requesting Provider: Conclusions: Normal global systolic LV function. The ejection fraction is estimated to be 60-65 %. Normal RV function. The left atrium is mildly dilated. The right atrium is mildly dilated. The pulmonary artery pressure is mildly increased. RVSP is 47mmHG.. Trivial pericardial effusion. No echocardiographic evidence of hemodynamic compromise. Measurements: Chambers Valvular Assessment AV/MV Valvular Assessment TV/PV Normal Normal Normal Name Value Range Name Value Range Name Value Range LVEF (MOD4): 62 % (>=55 %) TR Vmax: 3.24 mm/s ( - ) EF Range: 60-65 % TR PGmax: 42 mmHg ( - ) syst. PAP: 47 mmHg ( - ) Continued Measurements: Valvular Assessment TV/PV Name Value CVP (est.): 5 mmHg Findings: Left Ventricle: Normal global systolic LV function. The ejection fraction is estimated to be 60-65 %. Patient: VIRGINIA KWONG Study Date: 09/16/2017 Page 1 of 2 09:59 AM Right Ventricle: Normal RV function. There is a pacemaker lead noted in the right ventricle. Left Atrium: The left atrium is mildly dilated. Right Atrium: The right atrium is mildly dilated. There is a pacemaker lead noted in the right atrium. Tricuspid Valve: Mild tricuspid regurgitation is present. The pulmonary artery pressure is mildly increased. RVSP is 47mmHG.. Pericardium: Trivial pericardial effusion. No echocardiographic evidence of hemodynamic compromise. (No Signature Object) Patient: VIRGINIA KWONG Study Date: 09/16/2017 Page 2 of 2 09:59 AM D:_[id number]
[2017-09-16] MEDS ORDERED: WARFARIN SODIUM 4 MG TAB PO SCH (16:00)
--- NOTE | 2017-09-16 16:29 | ASDISCHSUM ---
Discharge Information Plan Status:Home with No Needs Medically Cleared to Leave:09/15/2017 Discharge Date:09/16/2017 03:01 PM D/C Disposition: ADT D/C Disposition:Home, Routine, Self-Care Projected Discharge Date:09/16/2017 12:00 AM Transportation at D/C: Discharge Delay Reason: Follow-Up Date:09/16/2017 12:00 AM Discharge Slot: Final Diagnosis: Placement Information Patient Contact Information Contact Name:KATTY Relationship: Address:[address] Work Phone: Emelia:[facility] Phone: [facility]/Zip Code:[place] [address] Email: Financial Information Financial Class:Medicare Advantage Plans Primary Plan Desc:[employer] Primary Plan Number:[id number] Secondary Plan Desc:[facility] Secondary Plan Number:[id number] [facility] CM Progress Note CM Note CM Note Notes: Pt admitted with afib. Pt will have pacemaker placed on Tuesday 09/12. CM will continue to follow for DC needs. Date Signed: 09/10/2017 02:29 PM Electronically Signed By:Macy Sellers LCSW [facility] CM Progress Note CM Note CM Note Notes: 09/13/2017 Case Management Note Reviewed chart and discussed pt with RN. There are no case management d/c needs identified at this time d/t pt marital status and family support. Per PT 09/13 note, pt is at baseline functionality. Case Management d/c poc: home with family support and follow up as directed. Case Management available if needs change. Date Signed: 09/13/2017 03:56 PM Electronically Signed By:Shiela Dsouza RN Intervention Information Intervention Type:*Incorrect Registration Date of Service:09/09/2017 07:27 PM Patient Type:Observation Staff Member:KULDIP Coelho, Jacqui Hours:0.25 Discipline: Severity:1 (0-1 Hours) Comment:Registered inpatient, written admit or gail observation status. Intervention Type:*IM-Signed Date of Service:09/16/2017 01:55 PM Patient Type:Inpatient Staff Member:Mariposa Putnam Hours: Discipline: Severity: Comment:
== END 2017-09-16 15:01 | disposition home or self-care (01) | DRG 242 ==
LOC: INTOOBSV 17:32 → F2W 18:35 → OBSVTOIN 09-10 09:44
PROVIDERS: ADMIT Family Medicine; ATTEND Family Medicine
PROC: 02H63JZ Insertion of Pacemaker Lead into Right Atrium, Percutaneous Approach (ICD-10-PCS; principal; 2017-09-12)
PROC: 02HK3JZ Insertion of Pacemaker Lead into Right Ventricle, Percutaneous Approach (ICD-10-PCS; principal; 2017-09-12)
PROC: 0JH606Z Insertion of Pacemaker, Dual Chamber into Chest Subcutaneous Tissue and Fascia, Open Approach (ICD-10-PCS; principal; 2017-09-12)
PROC: 5A2204Z Restoration of Cardiac Rhythm, Single (ICD-10-PCS; 2017-09-15)
PROC: B245ZZ4 Ultrasonography of Left Heart, Transesophageal (ICD-10-PCS; 2017-09-15)
DX: I48.91 Unspecified atrial fibrillation (principal); I11.0 Hypertensive heart disease with heart failure; I50.21 Acute systolic (congestive) heart failure; I69.359 Hemiplegia and hemiparesis following cerebral infarction affecting unspecified side; D50.9 Iron deficiency anemia, unspecified; G47.33 Obstructive sleep apnea (adult) (pediatric); H35.3190 Nonexudative age-related macular degeneration, unspecified eye, stage unspecified; I69.320 Aphasia following cerebral infarction; M06.9 Rheumatoid arthritis, unspecified; Z79.01 Long term (current) use of anticoagulants
CPT/HCPCS: 85520-90; 96365; 97161-GP; 97165-GO; 97530-GO; 97535-GO; C1785; C1898; G0378; G8987-GO-CK; G8988-GO-CI; G8988-GO-CJ; G8989-GO-CI; J0282; J0690; J1100; J1644; J1650; J2370; J2405; J2704; J2916; J3010; Q9967